=== PATIENT | female | born 1950 | race Caucasian/White ===

== ENCOUNTER 2020-05-01 11:27 | Outpatient (REF) | payer MEDICARE, SELFPAY ==
[2020-05-01 14:03] LABS: Hemoglobin 13.6 g/dl (12.0-16.0); Imm Gran Abs Auto 0.02 X10*3/uL (0.00-0.03); Imm Gran Pct Auto 0.2 % (0.0-0.4); MANUAL DIFF FLAG SCAN; Mean Platelet Volume 11.5 fL (9.4-12.3); PLT CLUMP 1; SCAN SMEAR FLAG 1
[2020-05-01 14:05] LABS: Basophils Absolute Auto 0.1 X10*3/uL (0.0-0.2); Basophils Percent Auto 0.7 % (0-2); Eosinophils Absolute Auto 0.1 X10*3/uL (0.0-0.4); Eosinophils Percent Auto 1.4 % (0-4); Hematocrit 42.1 % (37-47); Lymphocytes Absolute Auto 2.4 X10*3/uL (1.2-4.9); Lymphocytes Percent Auto 26.2 % (20-40); Mean Corpuscular HGB Conc 32.3 g/dl (31.0-35.0); Mean Corpuscular Hemoglobin 30.7 pg (27.0-33.0); Monocytes Absolute Auto 0.8 X10*3/uL (0.1-1.2); Monocytes Percent Auto 9.3 % (2-11); Neutrophils Absolute Auto 5.6 X10*3/uL (2.0-8.3); Neutrophils Percent Auto 62.2 % (45-73); Platelet Count 182 X10*3/uL (160-400); Red Blood Count 4.43 X10*6/uL (4.20-5.50)
[2020-05-01 14:33] LABS: Alanine Aminotransferase 24 U/L (0-31); Albumin Level 4.6 g/dL (3.5-5.0); Alkaline Phosphatase 95 U/L (39-117); Anion Gap 15 (12-20); Aspartate Amino Transferase 25 U/L (5-31); Bilirubin Direct 0.3 mg/dL (0.0-0.5); Bilirubin Total 0.9 mg/dL (0.0-1.0); Blood Urea Nitrogen 13 mg/dL (9-16); Calcium 10.2 mg/dL (8.4-10.2); Carbon Dioxide 28 mmol/L (22-29); Chloride 101 mmol/L (96-108); Cholesterol 211 mg/dL; Estimated Glomerular Filt Rate > 60; Glucose Fasting 147 mg/dL (60-99); HDL Cholesterol 98 mg/dL; LDL Cholesterol Calculated 93 mg/dl; Potassium 4.4 mmol/L (3.3-5.1); Sodium 140 mmol/L (135-145); Total Protein 7.5 g/dL (6.5-8.0); Triglycerides 103 mg/dL
[2020-05-01 14:36] LABS: SLIDE REVIEW VERIFIED
[2020-05-04 21:18] LABS: Vitamin D 25-OH, D2 <4 ng/mL; Vitamin D 25-OH, D3 50 ng/mL; Vitamin D 25-OH, Total 50 ng/mL (30-100)
== END 2020-05-01 11:28 | disposition home or self-care (01) ==
LOC: HO.HMGCLDS 11:27
PROVIDERS: PCP Internal Medicine; Visit Provider Internal Medicine
DX: J30.9 Allergic rhinitis, unspecified (principal); E78.9 Disorder of lipoprotein metabolism, unspecified; G47.9 Sleep disorder, unspecified; J44.9 Chronic obstructive pulmonary disease, unspecified; Z76.89 Persons encountering health services in other specified circumstances; Z86.73 Personal history of transient ischemic attack (TIA), and cerebral infarction without residual deficits
CPT/HCPCS: 36415; 80048; 80061; 80076; 82306; 84443; 85025

== ENCOUNTER 2020-05-08 08:49 | Outpatient (REF) | payer MEDICARE, SELFPAY ==
[2020-05-08 11:42] LABS: Estimated Average Glucose 120 mg/dL; Hemoglobin A1c % 5.8 %
== END 2020-05-08 08:50 | disposition home or self-care (01) ==
LOC: HO.HMGCLDS 08:49
PROVIDERS: PCP Internal Medicine; Visit Provider Internal Medicine
DX: R73.01 Impaired fasting glucose (principal)
CPT/HCPCS: 36415; 83036

== ENCOUNTER → 2020-08-06 08:43 | Outpatient (BNVA) | payer MEDICARE, SELFPAY | PROVIDERS: PCP Internal Medicine; Visit Provider Internal Medicine | DX: J30.9 Allergic rhinitis, unspecified (principal); J44.9 Chronic obstructive pulmonary disease, unspecified | CPT/HCPCS: 99202 ==

== ENCOUNTER 2020-09-03 09:58 | Outpatient (REF) | payer MEDICARE, SELFPAY ==
--- NOTE | 2020-09-03 17:10 | PFT_ITS ---
FLOWS: FEV1 25% of predicted at 0.48 L. FVC 49% of predicted at 1.26 L. FEV1 to FVC ratio of 0.38. Bronchodilator was not performed as patient has used bronchodilator immediately prior to testing. LUNG VOLUMES: Total lung capacity 73% of predicted at 3.26 L. Residual volume 102% of predicted at 2.06 L. Slow vital capacity 49% of predicted at 1.23 L. Expiratory reserve volume 74% of predicted at 0.40 L. Diffusion capacity is severely decreased, diffusion capacity adjust to being moderately decreased after correction for alveolar ventilation. IMPRESSION: Severe obstructive ventilatory defect. No bronchodilator testing was performed as patient has used bronchodilator prior to testing. Decreased diffusion capacity suggests emphysema. MD GERRI Reis/MODL / [phone]
== END 2020-09-03 09:59 | disposition home or self-care (01) ==
LOC: HO.RESP 09:58
PROVIDERS: PCP Internal Medicine; Visit Provider Internal Medicine
DX: J44.9 Chronic obstructive pulmonary disease, unspecified (principal); J30.9 Allergic rhinitis, unspecified
CPT/HCPCS: 94010; 94727; 94729; 99211

== ENCOUNTER → 2020-09-13 10:35 | Outpatient (BNVA) | payer MEDICARE, SELFPAY | PROVIDERS: PCP Internal Medicine; Visit Provider Internal Medicine | DX: J44.9 Chronic obstructive pulmonary disease, unspecified (principal); J96.91 Respiratory failure, unspecified with hypoxia; J30.9 Allergic rhinitis, unspecified | CPT/HCPCS: 99212 ==

== ENCOUNTER 2020-09-25 10:18 | Outpatient (REF) | payer MEDICARE, SELFPAY ==
[2020-09-25 12:40] LABS: Alanine Aminotransferase 51 U/L (0-31); Albumin Level 4.5 g/dL (3.5-5.0); Alkaline Phosphatase 94 U/L (39-117); Anion Gap 16 (12-20); Aspartate Amino Transferase 54 U/L (5-31); Bilirubin Total 0.9 mg/dL (0.0-1.0); Blood Urea Nitrogen 10 mg/dL (9-16); Calcium 9.9 mg/dL (8.4-10.2); Carbon Dioxide 24 mmol/L (22-29); Chloride 104 mmol/L (96-108); Cholesterol 201 mg/dL; Estimated Glomerular Filt Rate > 60; Glucose Fasting 120 mg/dL (60-99); HDL Cholesterol 99 mg/dL; LDL Cholesterol Calculated 83 mg/dl; Potassium 4.4 mmol/L (3.3-5.1); Sodium 140 mmol/L (135-145); Total Protein 7.3 g/dL (6.5-8.0); Triglycerides 96 mg/dL
== END 2020-09-25 10:19 | disposition home or self-care (01) ==
LOC: HO.HMGCLDS 10:18
PROVIDERS: PCP Internal Medicine; Visit Provider Internal Medicine
DX: R73.01 Impaired fasting glucose (principal); E78.9 Disorder of lipoprotein metabolism, unspecified; G47.9 Sleep disorder, unspecified; J44.9 Chronic obstructive pulmonary disease, unspecified
CPT/HCPCS: 36415; 80053; 80061

== ENCOUNTER 2020-11-07 09:59 | Outpatient (REF) | payer MEDICARE, SELFPAY ==
--- NOTE | ~2020-11-07 | MM_ITS ---
EXAMINATION: MM SCREENING DIGITAL MAMMOGRAPHY, BILATERAL CLINICAL INFORMATION: Screening. Asymptomatic. The lifetime risk of breast cancer based on the Tyrer-Cuzick Model is 3%. COMPARISON: Mammography: 04/15/2017, 11/23/2015, 05/29/2014 TECHNIQUE: Digital mammography is performed in craniocaudal and mediolateral oblique views along with computer-aided detection (CAD). FINDINGS: There are scattered areas of fibroglandular density (ACR BI-RADS breast composition Category b). The breasts are mild symmetrically smaller and mildly slightly increased in density from prior exams consistent with weight loss. Parenchymal pattern is otherwise unremarkable and similar in distribution to prior exams. There is no interval mass or architectural abnormality or developing density. No abnormal calcifications. The axilla and skin contours are unremarkable. MM/MM screening mammo BI IMPRESSION: 1. Mild symmetric breast size decrease consistent with weight loss. 2. Otherwise no significant changes from prior studies. ASSESSMENT: BI-RADS 2: Benign RECOMMENDATION: Routine annual mammography screening. This patient's information was entered into a reminder system with a target due date for their next mammogram.
--- NOTE | ~2020-11-07 | MM_ITS ---
EXAMINATION: BONE DENSITOMETRY CLINICAL INDICATION: Encounter for other screening for malignant neoplasm. COMPARISON: Previous BD dated 11/23/2015 and baseline BD dated 06/18/2012. TECHNIQUE: Using a [employer] DXA System (software version: 13.1) manufactured by [employer], dual-energy x-ray absorptiometry was performed of the lumbar spine and left hip. The images are of good technical quality. Summary results are attached. FINDINGS: AP SPINE L1-L4: Current: BMD 0.927 g/cm2, Z-score 0.4, T-score -2.1, osteopenia, 2.4% increase from previous, 15.6% increase from baseline (<5% change is not significant). Prior: BMD 0.905 g/cm2. Baseline: BMD 0.802 g/cm2. LEFT FEMUR, NECK: Current: BMD 0.540 g/cm2, Z-score -1.4, T-score -3.6, osteoporosis. Prior: BMD 0.551 g/cm2. Baseline: BMD 0.524 g/cm2. LEFT FEMUR, TOTAL: Current: BMD 0.561 g/cm2, Z-score -1.5, T-score -3.5, osteoporosis, 1.1% decrease from previous, 4.3% increase from baseline (<5% change is not significant). Prior: BMD 0.567 g/cm2. Baseline: BMD 0.538 g/cm2. IDENTIFIED RISK FACTORS: Low body weight, menopause. HISTORY OF FRACTURE: None listed. MEDICATIONS: Calcium supplements or multivitamin, vitamin D. MM/XR DEXA axial skeleton IMPRESSION: 1. DIAGNOSIS: Osteoporosis based on the lowest T-score value of -3.6 in the femoral neck applying World Health Organization criteria. 2. 10-YEAR FRACTURE RISK PREDICTION, FRAX: Major osteoporotic fracture (clinical spine, forearm, hip or shoulder) 21.0%. Hip fracture 9.7%. 3. Treatment Recommendations: NOF guidelines recommend consideration for treatment in postmenopausal women and men age 50 and older presenting with the following: -A hip or vertebral (clinical or morphometric) fracture. -T-score less than or equal to -2.5 at the femoral neck or spine after appropriate evaluation to exclude secondary causes. -Low bone mass at the hip or spine and a 10-year fracture probability by FRAX of greater than or equal to 3% for hip fracture or greater than or equal to 20% for major osteoporotic fracture based on the [place] adapted WHO algorithm. 4. Other Recommendations: All treatment decisions require clinical judgment and consideration of individual patient factors, including patient preferences, comorbidities, previous drug use, risk factors not captured in the FRAX model (e.g. frailty, falls, vitamin D deficiency, increased bone turnover, interval significant decline in bone density) and possible under or overestimation of fracture risk by FRAX. Additional medical evaluation for secondary cause of low bone mineral density may be appropriate. FUTURE SCAN RECOMMENDATION: People with diagnosed cases of osteoporosis or at high risk for fracture should have regular bone mineral density tests. For patients eligible for Medicare, routine testing is allowed once every 2 years. The testing frequency can be increased to one year for patients who have rapidly progressing disease, those who are receiving or discontinuing medical therapy to restore bone mass, or have additional risk factors.
== END 2020-11-07 10:00 | disposition home or self-care (01) ==
LOC: HO.MAMMO 09:59
PROVIDERS: Visit Provider Internal Medicine
DX: Z12.31 Encounter for screening mammogram for malignant neoplasm of breast (principal); Z13.820 Encounter for screening for osteoporosis; Z78.0 Asymptomatic menopausal state
CPT/HCPCS: 77067; 77080

== ENCOUNTER → 2020-11-26 09:44 | Outpatient (BNVA) | payer MEDICARE, SELFPAY | PROVIDERS: PCP Internal Medicine; Visit Provider Internal Medicine | DX: J44.9 Chronic obstructive pulmonary disease, unspecified (principal); J96.91 Respiratory failure, unspecified with hypoxia; J30.9 Allergic rhinitis, unspecified; I10 Essential (primary) hypertension | CPT/HCPCS: 99212 ==

== ENCOUNTER 2020-11-27 12:14 | Outpatient (REF) | payer MEDICARE, SELFPAY ==
[2020-11-27 14:13] LABS: Estimated Average Glucose 117 mg/dL; Hemoglobin A1c % 5.7 %
[2020-11-27 14:22] LABS: Alanine Aminotransferase 21 U/L (0-31); Albumin Level 4.5 g/dL (3.5-5.0); Alkaline Phosphatase 83 U/L (39-117); Anion Gap 16 (12-20); Aspartate Amino Transferase 23 U/L (5-31); Bilirubin Total 0.9 mg/dL (0.0-1.0); Blood Urea Nitrogen 11 mg/dL (9-16); Calcium 9.9 mg/dL (8.4-10.2); Carbon Dioxide 23 mmol/L (22-29); Chloride 106 mmol/L (96-108); Estimated Glomerular Filt Rate > 60; Glucose Random 119 mg/dL (60-115); Potassium 4.2 mmol/L (3.3-5.1); Sodium 141 mmol/L (135-145); Total Protein 6.9 g/dL (6.5-8.0)
== END 2020-11-27 12:15 | disposition home or self-care (01) ==
LOC: HO.HMGCLDS 12:14
PROVIDERS: PCP Internal Medicine; Visit Provider Internal Medicine
DX: F41.1 Generalized anxiety disorder (principal); G47.9 Sleep disorder, unspecified; R79.89 Other specified abnormal findings of blood chemistry; R73.01 Impaired fasting glucose
CPT/HCPCS: 36415; 80053; 83036

== ENCOUNTER → 2021-05-02 10:47 | Outpatient (BNVA) | payer MEDICARE, SELFPAY | PROVIDERS: PCP Internal Medicine; Visit Provider Internal Medicine | DX: J44.9 Chronic obstructive pulmonary disease, unspecified (principal); J96.91 Respiratory failure, unspecified with hypoxia; Z79.899 Other long term (current) drug therapy; Z99.81 Dependence on supplemental oxygen | CPT/HCPCS: 99212 ==

== ENCOUNTER 2021-08-20 11:48 | Outpatient (REF) | payer MEDICARE, SELFPAY ==
[2021-08-20 13:48] LABS: MANUAL DIFF FLAG NO
[2021-08-20 13:51] LABS: Basophils Absolute Auto 0.1 X10*3/uL (0.0-0.2); Basophils Percent Auto 0.6 % (0-2); Eosinophils Absolute Auto 0.1 X10*3/uL (0.0-0.4); Eosinophils Percent Auto 0.8 % (0-4); Hematocrit 43.8 % (37.0-47.0); Hemoglobin 13.8 g/dl (12.0-16.0); Imm Gran Abs Auto 0.06 X10*3/uL (0.00-0.03); Imm Gran Pct Auto 0.7 % (0.0-0.4); Lymphocytes Absolute Auto 1.7 X10*3/uL (1.2-4.9); Lymphocytes Percent Auto 18.9 % (20-40); Mean Corpuscular HGB Conc 31.5 g/dl (31.0-35.0); Mean Corpuscular Hemoglobin 30.3 pg (27.0-33.0); Mean Corpuscular Volume 96.3 fL (80.0-98.0); Mean Platelet Volume 10.9 fL (9.4-12.3); Monocytes Absolute Auto 0.9 X10*3/uL (0.1-1.2); Monocytes Percent Auto 9.7 % (2-11); Neutrophils Absolute Auto 6.2 x10*3/uL (2.0-8.3); Neutrophils Percent Auto 69.3 % (45-73); Platelet Count 272 X10*3/uL (160-400); Red Blood Count 4.55 X10*6/uL (4.20-5.50); Red Cell Distribution Width 13.2 % (11.0-16.0)
[2021-08-20 14:02] LABS: Alanine Aminotransferase 32 U/L (0-31); Albumin Level 4.7 g/dL (3.5-5.0); Alkaline Phosphatase 85 U/L (39-117); Anion Gap 17 (12-20); Aspartate Amino Transferase 30 U/L (5-31); Bilirubin Total 0.7 mg/dL (0.0-1.0); Blood Urea Nitrogen 12 mg/dL (9-16); Calcium 10.6 mg/dL (8.4-10.2); Carbon Dioxide 28 mmol/L (22-29); Chloride 100 mmol/L (96-108); Estimated Glomerular Filt Rate > 60; Glucose Random 102 mg/dL (60-115); Potassium 4.9 mmol/L (3.3-5.1); Sodium 140 mmol/L (135-145); Total Protein 7.7 g/dL (6.5-8.0)
[2021-08-20 14:23] LABS: TSH reflex Free T4 1.33 uIU/mL (0.32-4.0)
== END 2021-08-20 11:49 | disposition home or self-care (01) ==
LOC: HO.HMGCLDS 11:48
PROVIDERS: PCP Internal Medicine; Visit Provider Internal Medicine
DX: E78.9 Disorder of lipoprotein metabolism, unspecified (principal); F41.1 Generalized anxiety disorder; J44.9 Chronic obstructive pulmonary disease, unspecified; R00.0 Tachycardia, unspecified; R03.0 Elevated blood-pressure reading, without diagnosis of hypertension; R79.89 Other specified abnormal findings of blood chemistry
CPT/HCPCS: 36415; 80053; 84443; 85025

== ENCOUNTER → 2021-08-27 10:40 | Outpatient (BNVA) | payer MEDICARE, SELFPAY | PROVIDERS: PCP Internal Medicine; Visit Provider Internal Medicine | DX: J44.9 Chronic obstructive pulmonary disease, unspecified (principal); J96.91 Respiratory failure, unspecified with hypoxia; Z99.81 Dependence on supplemental oxygen | CPT/HCPCS: 99212 ==

== ENCOUNTER → 2022-04-03 10:09 | Outpatient (BNVA) | payer MEDICARE, SELFPAY | PROVIDERS: PCP Internal Medicine; Visit Provider Internal Medicine | DX: J44.9 Chronic obstructive pulmonary disease, unspecified (principal); J96.91 Respiratory failure, unspecified with hypoxia | CPT/HCPCS: 99212 ==

== ENCOUNTER 2022-05-06 13:11 | Outpatient (REF) | payer MEDICARE, SELFPAY ==
[2022-05-06 14:22] LABS: MANUAL DIFF FLAG NO
[2022-05-06 14:26] LABS: Basophils Absolute Auto 0.1 X10*3/uL (0.0-0.2); Basophils Percent Auto 0.9 % (0-2); Eosinophils Absolute Auto 0.1 X10*3/uL (0.0-0.4); Eosinophils Percent Auto 0.7 % (0-4); Hematocrit 42.7 % (37.0-47.0); Hemoglobin 13.6 g/dl (12.0-16.0); Imm Gran Abs Auto 0.03 X10*3/uL (0.00-0.03); Imm Gran Pct Auto 0.3 % (0.0-0.4); Lymphocytes Percent Auto 22.5 % (20-40); Mean Corpuscular HGB Conc 31.9 g/dl (31.0-35.0); Mean Corpuscular Hemoglobin 30.6 pg (27.0-33.0); Mean Platelet Volume 10.4 fL (9.4-12.3); Monocytes Absolute Auto 0.7 X10*3/uL (0.1-1.2); Monocytes Percent Auto 8.1 % (2-11); Neutrophils Absolute Auto 6.1 x10*3/uL (2.0-8.3); Neutrophils Percent Auto 67.5 % (45-73); Platelet Count 373 X10*3/uL (160-400); Red Blood Count 4.45 X10*6/uL (4.20-5.50); Red Cell Distribution Width 13.3 % (11.0-16.0); White Blood Count 9.1 X10*3/uL (4.8-10.8)
[2022-05-06 15:06] LABS: Alanine Aminotransferase 17 U/L (0-31); Albumin Level 4.5 g/dL (3.5-5.0); Alkaline Phosphatase 119 U/L (39-117); Anion Gap 18 (12-20); Aspartate Amino Transferase 21 U/L (5-31); Bilirubin Total 0.8 mg/dL (0.0-1.0); Blood Urea Nitrogen 11 mg/dL (9-16); Calcium 10.2 mg/dL (8.4-10.2); Carbon Dioxide 23 mmol/L (22-29); Chloride 103 mmol/L (96-108); Estimated Glomerular Filt Rate > 60; Glucose Random 190 mg/dL (60-115); Potassium 4.6 mmol/L (3.3-5.1); Sodium 139 mmol/L (135-145); Total Protein 7.3 g/dL (6.5-8.0)
== END 2022-05-06 13:12 | disposition home or self-care (01) ==
LOC: HO.HMGCLDS 13:11
PROVIDERS: PCP Internal Medicine; Visit Provider Internal Medicine
DX: J44.9 Chronic obstructive pulmonary disease, unspecified (principal); E78.9 Disorder of lipoprotein metabolism, unspecified; G47.9 Sleep disorder, unspecified
CPT/HCPCS: 36415; 80053; 85025

== ENCOUNTER 2022-10-03 11:30 | Outpatient (AMB) | payer MEDICARE, SELFPAY ==
--- NOTE | 2022-10-03 11:30 | A.OFFPC_ITS ---
Vital Signs 10/03/22 11:31 Height 5 ft BMI Reason not done Patient refused/unable BP 132/68 Blood Pressure Location Lt brachial Position Sitting Pulse 107 H Pulse Source Pulse Oximeter Pulse Oximetry (%) 98 Oxygen Delivery Method Nasal Cannula Intake Visit Reasons: PE Allergies Sulfamethoxazole-TMP DS Allergy (Intermediate, Uncoded 04/03/22 10:37) tongue swelling Medication List - Last Reconciled 10/03/22 by Wilton Alfaro MD albuterol sulfate 90 mcg/actuation (ProAir HFA) 2 puffs inhalation Q4-6H PRN 30 days amlodipine 2.5 mg PO DAILY 90 days Anoro Ellipta 62.5-25 mcg/actuation (umeclidinium-vilanterol) 1 ea PO DAILY NS ascorbate calcium (vitamin C) 500 mg PO DAILY aspirin (Adult Low Dose Aspirin) 81 mg PO DAILY cholecalciferol (vitamin D3) 25 mcg PO DAILY escitalopram oxalate (Lexapro) 10 mg PO DAILY 90 days fluticasone propionate 50 mcg/actuation (Flonase Allergy Relief) 1 spray intranasal DAILY PRN 30 days mirtazapine 22.5 mg (1.5 x 15 mg) PO BEDTIME simvastatin 20 mg PO DAILY 90 days vitamin B complex (B Complex-Vitamin B12 tablet) 1 tab PO DAILY vitamin E 200 units PO BID Tobacco use date assessed: 10/03/22 Fall risk assessment: 1 Fall in past year Last assessed Fall Risk: 10/03/22 Dental Screening Dental Screen Date: 10/03/22 Did you have a dental visit in the last 12 months?: Yes Did you have a dental problem in the last 6 months where you did not have access to dental care?: No Was dental information given to patient?: No HPI PE HPI Details Physical exam appointment patient is a 72-year-old female Patient fell yesterday tripped over a wire right knee is hurting I have ordered x-ray for her I have told her to take deep that she already have at home b.i.d. in get back to me in 1 week. She is able to put weight on it when she is holding on. Due for mammogram and bone density patient have osteoporosis She has taking Fosamax for years and stopped. We discussed that briefly today I think it will be reasonable up she took a neurologist she says she will get back to me on that. Blood pressure is stable patient is on amlodipine 2.5 mg She also did Lexapro for anxiety mirtazapine 22.5 to sleep at night Continue simvastatin 20 mg daily COPD management through Dr. Valderrama patient is oxygen dependent Due for labs today as well Follow-up 3 months [facility] Medical History COPD (chronic obstructive pulmonary disease) Respiratory failure with hypoxia Stroke Social History Housing: House Alcohol intake: current Alcohol intake frequency: holidays/special occasions only Patient Tobacco Use Status: Former Tobacco user Quit Date: 2012 Tobacco use type: Cigarette e-Cigarette/Vaping Use: Never Used service: No Current occupational status: retired Cognitive needs: No Hearing needs: No Vision needs: Yes Questionnaire Thrive Questionnaire Date Thrive assessed: 09/26/20 AUDIT C Alcohol Use Questionnaire (AUDIT-C) 1. How often do you have a drink containing alcohol?: Never 3. How often do you have six or more drinks on one occasion?: Never Total Score: 0 Score Reviewed/Action Taken: Yes Review of Systems Const Denies chills, Denies fever(s) and Denies headache(s) Eyes Denies blurry vision ENT Denies headache(s), Denies nasal discharge, Denies nasal obstruction, Denies odynophagia and Denies sinus pain Card Denies chest pain at rest and Denies chest pain with activity Resp Denies hemoptysis GI Denies diarrhea, Denies odynophagia, Denies vomiting and Denies hematemesis Reports as per HPI Skin/Breast Reports as per HPI Neuro Denies Neuro-related abnormal movements, Denies Abnormal speech present, Denies headache(s) and Denies Sensory deficit (Neuro) Psych Denies mood swings and Denies paranoia Endo Reports as per HPI Renan/Lymph Reports as per HPI Aller/Immun Reports as per HPI Physical exam (Primary Care) Vital Signs: Last Vital Signs Pulse 107 H 10/03/22 11:31 BP 132/68 10/03/22 11:31 Pulse Ox 98 10/03/22 11:31 Oxygen Delivery Method Nasal Cannula 10/03/22 11:31 Tobacco/Smoking Status: Tobacco use Status Tobacco use date assessed 10/03/22 10/03/22 11:33 Patient Tobacco Use Status Former Tobacco user 10/03/22 11:33 Tobacco use type Cigarette 10/03/22 11:33 e-Cigarette/Vaping Use Never Used 10/03/22 11:33 Thrive Assessment: Date of Thrive Assessment Date Thrive assessed 09/26/20 10/03/22 11:33 Const Other: Patient is sitting in wheelchair comfortably General: cooperative, comfortable and no acute distress Orientation/consciousness: patient oriented x3 HENMT Other: Nasal cannula in nose Head: Yes normocephalic and Yes atraumatic Eyes General: appearance normal, both eyes and all related structures Pupils: Equal, round and reactive pupils present EOM: EOMs intact bilaterally Neck Neck: Yes supple and No lymphadenopathy Thyroid: Thyroid normal Lymphatic: no lymphadenopathy noted Resp Effort & Inspection: able to speak in complete sentences Auscultation: clear to auscultation bilaterally Cardio Heart sounds: S1 normal heart sound present and S2 normal heart sound present GI Palpation (GI): Soft to palpation and nontender Auscultation: normal bowel sounds General: Yes no CVA tenderness Back/Spine/Pelvis Back: no CVA tenderness Skin General skin exam: elasticity normal and turgor normal Neuro General: patient oriented x3 Cranial nerves: Yes Equal, round and reactive pupils present Speech: No Abnormal speech present Sensory Exam: No Sensory deficit (Neuro) Extrem General: Yes normal exam except as noted and No edema Assessment and Plan Assessment & Plan (1) Encounter for general adult medical examination with abnormal findings: Code(s): Z00.01 - Encounter for general adult medical examination with abnormal findings (2) Right knee injury: Code(s): S89.91XA - Unspecified injury of right lower leg, initial encounter (3) Lipid disorder: Code(s): E78.9 - Disorder of lipoprotein metabolism, unspecified (4) Elevated fasting blood sugar: Code(s): R73.01 - Impaired fasting glucose (5) LFT elevation: Code(s): R79.89 - Other specified abnormal findings of blood chemistry (6) COPD, severe: Code(s): J44.9 - Chronic obstructive pulmonary disease, unspecified (7) Osteoporosis: Code(s): M81.0 - Age-related osteoporosis without current pathological fracture (8) Anxiety, generalized: Code(s): F41.1 - Generalized anxiety disorder Plan Physical exam appointment patient is a 72-year-old female Patient fell yesterday tripped over a wire right knee is hurting I have ordered x-ray for her I have told her to take deep that she already have at home b.i.d. in get back to me in 1 week. She is able to put weight on it when she is holding on. Due for mammogram and bone density patient have osteoporosis She has taking Fosamax for years and stopped. We discussed that briefly today I think it will be reasonable up she took a neurologist she says she will get back to me on that. Blood pressure is stable patient is on amlodipine 2.5 mg She also did Lexapro for anxiety mirtazapine 22.5 to sleep at night Continue simvastatin 20 mg daily COPD management through Dr. Valderrama patient is oxygen dependent Due for labs today as well Follow-up 3 months Orders: Orders Comprehensive Met. Panel Today E78.9 - Disorder of lipoprotein metabolism, unspecified, F41.1 - Generalized anxiety disorder, J44.9 - Chronic obstructive pulmonary disease, unspecified, M81.0 - Age-related osteoporosis without current pathological fracture, R73.01 - Impaired fasting glucose, R79.89 - Other specified abnormal findings of blood chemistry, Z00.01 - Encounter for general adult medical examination with abnormal findings LDL Cholesterol Direct Today E78.9 - Disorder of lipoprotein metabolism, unspecified, F41.1 - Generalized anxiety disorder, J44.9 - Chronic obstructive pulmonary disease, unspecified, M81.0 - Age-related osteoporosis without current pathological fracture, R73.01 - Impaired fasting glucose, R79.89 - Other specified abnormal findings of blood chemistry, Z00.01 - Encounter for general adult medical examination with abnormal findings Complete Blood Count Auto Diff Today E78.9 - Disorder of lipoprotein metabolism, unspecified, F41.1 - Generalized anxiety disorder, J44.9 - Chronic obstructive pulmonary disease, unspecified, M81.0 - Age-related osteoporosis without current pathological fracture, R73.01 - Impaired fasting glucose, R79.89 - Other specified abnormal findings of blood chemistry, Z00.01 - Encounter for general adult medical examination with abnormal findings XR knee RT 2V Today S89.91XA - Unspecified injury of right lower leg, initial encounter MM tomosynthesis screening BI Today Z12.31 - Encounter for screening mammogram for malignant neoplasm of breast Medications: New cholecalciferol (vitamin D3) 25 mcg PO DAILY 90 caps 0RF Changed From mirtazapine 22.5 mg (1.5 x 15 mg) PO BEDTIME 135 tabs 0RF To mirtazapine 22.5 mg (1.5 x 15 mg) PO BEDTIME 90 days 135 tabs 1RF Refilled simvastatin 20 mg PO DAILY 90 days 90 tabs 0RF E78.9 - Disorder of lipoprotein metabolism, unspecified fluticasone propionate 50 mcg/actuation (Flonase Allergy Relief) administer into each nostril 1 spray intranasal DAILY 30 days PRN 16 grams 3RF nasal congestion escitalopram oxalate (Lexapro) 10 mg PO DAILY 90 days 90 tabs 0RF F41.1 - Generalized anxiety disorder amlodipine 2.5 mg PO DAILY 90 days 90 tabs 0RF Coding Level of Care Code Est Pt Prev Care >65y(55502) Diagnoses Encounter for general adult medical examination with abnormal findings Z00.01 Right knee injury S89.91XA Lipid disorder E78.9 Elevated fasting blood sugar R73.01 LFT elevation R79.89 COPD, severe J44.9 Osteoporosis M81.0 Anxiety, generalized F41.1
[2022-10-03 11:31] VITALS: BP 132/68; PULSE 107; O2SAT 98
== END 2022-10-03 11:59 | disposition home or self-care (01) ==
PROVIDERS: Visit Provider Internal Medicine
DX: Z00.01 Encounter for general adult medical examination with abnormal findings (principal); S89.91XA Unspecified injury of right lower leg, initial encounter; E78.9 Disorder of lipoprotein metabolism, unspecified; J44.9 Chronic obstructive pulmonary disease, unspecified; R73.01 Impaired fasting glucose; R79.89 Other specified abnormal findings of blood chemistry; M81.0 Age-related osteoporosis without current pathological fracture; F41.1 Generalized anxiety disorder
CPT/HCPCS: 99397

== ENCOUNTER 2022-10-03 12:02 | Outpatient (REF) | payer MEDICARE, SELFPAY ==
--- NOTE | ~2022-10-03 | XR_ITS ---
EXAMINATION: XR KNEE, RIGHT CLINICAL INFORMATION: Injury of the right lower leg COMPARISON: None available. TECHNIQUE: Four views of the right knee. FINDINGS: No fracture or subluxation. Compartmental joint spaces are maintained. Enthesophyte formation of the patella. Small joint effusion. XR/XR knee RT 4V IMPRESSION: Small joint effusion. No fracture or malalignment.
[2022-10-03 14:22] LABS: MANUAL DIFF FLAG NO
[2022-10-03 14:50] LABS: Basophils Percent Auto 0.3 % (0-2); Hematocrit 41.8 % (37.0-47.0); Hemoglobin 13.7 g/dl (12.0-16.0); Imm Gran Abs Auto 0.04 X10*3/uL (0.00-0.03); Imm Gran Pct Auto 0.4 % (0.0-0.4); Lymphocytes Absolute Auto 0.7 X10*3/uL (1.2-4.9); Lymphocytes Percent Auto 6.9 % (20-40); Mean Corpuscular HGB Conc 32.8 g/dl (31.0-35.0); Mean Corpuscular Hemoglobin 31.2 pg (27.0-33.0); Mean Corpuscular Volume 95.2 fL (80.0-98.0); Mean Platelet Volume 10.8 fL (9.4-12.3); Monocytes Absolute Auto 0.5 X10*3/uL (0.1-1.2); Monocytes Percent Auto 5.1 % (2-11); Neutrophils Absolute Auto 8.7 x10*3/uL (2.0-8.3); Neutrophils Percent Auto 87.3 % (45-73); Platelet Count 240 X10*3/uL (160-400); Red Blood Count 4.39 X10*6/uL (4.20-5.50); Red Cell Distribution Width 13.1 % (11.0-16.0); White Blood Count 9.9 X10*3/uL (4.8-10.8)
[2022-10-03 15:16] LABS: Alanine Aminotransferase 26 U/L (0-31); Albumin Level 4.6 g/dL (3.5-5.0); Alkaline Phosphatase 86 U/L (39-117); Anion Gap 16 (12-20); Aspartate Amino Transferase 25 U/L (5-31); Bilirubin Total 0.9 mg/dL (0.0-1.0); Blood Urea Nitrogen 14 mg/dL (9-16); Carbon Dioxide 26 mmol/L (22-29); Chloride 99 mmol/L (96-108); Estimated Glomerular Filt Rate 50; Glucose Random 128 mg/dL (60-115); Potassium 4.3 mmol/L (3.3-5.1); Sodium 137 mmol/L (135-145); Total Protein 7.7 g/dL (6.5-8.0)
[2022-10-05 10:58] LABS: LDL Cholesterol Direct 70 mg/dL (<100)
== END 2022-10-03 12:03 | disposition home or self-care (01) ==
LOC: HO.HMGCX 12:02
PROVIDERS: PCP Internal Medicine; Visit Provider Internal Medicine
DX: Z00.01 Encounter for general adult medical examination with abnormal findings (principal); E78.9 Disorder of lipoprotein metabolism, unspecified; R73.01 Impaired fasting glucose; R79.89 Other specified abnormal findings of blood chemistry; J44.9 Chronic obstructive pulmonary disease, unspecified; M81.0 Age-related osteoporosis without current pathological fracture; F41.1 Generalized anxiety disorder; S89.91XA Unspecified injury of right lower leg, initial encounter
CPT/HCPCS: 36415; 73564; 80053; 83721; 85025

== ENCOUNTER 2022-11-11 10:37 | Outpatient (REF) | payer MEDICARE, SELFPAY ==
--- NOTE | ~2022-11-11 | MM_ITS ---
EXAMINATION: BONE DENSITOMETRY CLINICAL INDICATION: Age-related osteoporosis without current pathological fracture. COMPARISON: Previous BD dated 11/07/2020 and baseline BD dated 06/18/2012. TECHNIQUE: Using a [employer] DXA System (software version: 13.1) manufactured by [employer], dual-energy x-ray absorptiometry was performed of the lumbar spine and left hip. The images are of good technical quality. Summary results are attached. FINDINGS: LEFT FEMUR, NECK: Current: BMD 0.594 g/cm2, Z-score -0.9, T-score -3.2, osteoporosis. Prior: BMD 0.540 g/cm2. Baseline: BMD 0.524 g/cm2. LEFT FEMUR, TOTAL: Current: BMD 0.577 g/cm2, Z-score -1.3, T-score -3.4, osteoporosis, 2.9% increase from previous, 7.2% increase from baseline (<5% change is not significant). Prior: BMD 0.561 g/cm2. Baseline: BMD 0.538 g/cm2. AP SPINE L1-L4: Current: BMD 0.900 g/cm2, Z-score 0.2, T-score -2.3, osteopenia, 2.9% decrease from previous, 12.2% increase from baseline (<5% change is not significant). Prior: BMD 0.927 g/cm2. Baseline: BMD 0.802 g/cm2. IDENTIFIED RISK FACTORS: Menopause, low body weight, osteoporosis. HISTORY OF FRACTURE: None listed. MEDICATIONS: Calcium supplements or multivitamin, vitamin D. MM/XR DEXA axial skeleton IMPRESSION: 1. DIAGNOSIS: Osteoporosis based on the lowest T-score value of -3.4 in the total femur applying World Health Organization criteria. 2. 10-YEAR FRACTURE RISK PREDICTION, FRAX: According to the guidelines, FRAX calculation should only be performed on patients in the osteopenia bone density category. Therefore, FRAX was not performed on this patient. 3. Treatment Recommendations: NOF guidelines recommend consideration for treatment in postmenopausal women and men age 50 and older presenting with the following: -A hip or vertebral (clinical or morphometric) fracture. -T-score less than or equal to -2.5 at the femoral neck or spine after appropriate evaluation to exclude secondary causes. -Low bone mass at the hip or spine and a 10-year fracture probability by FRAX of greater than or equal to 3% for hip fracture or greater than or equal to 20% for major osteoporotic fracture based on the [place] adapted WHO algorithm. 4. Other Recommendations: All treatment decisions require clinical judgment and consideration of individual patient factors, including patient preferences, comorbidities, previous drug use, risk factors not captured in the FRAX model (e.g. frailty, falls, vitamin D deficiency, increased bone turnover, interval significant decline in bone density) and possible under or overestimation of fracture risk by FRAX. Additional medical evaluation for secondary cause of low bone mineral density may be appropriate. FUTURE SCAN RECOMMENDATION: People with diagnosed cases of osteoporosis or at high risk for fracture should have regular bone mineral density tests. For patients eligible for Medicare, routine testing is allowed once every 2 years. The testing frequency can be increased to one year for patients who have rapidly progressing disease, those who are receiving or discontinuing medical therapy to restore bone mass, or have additional risk factors.
== END 2022-11-11 10:38 | disposition home or self-care (01) ==
LOC: HO.MAMMO 10:37
PROVIDERS: PCP Internal Medicine; Visit Provider Internal Medicine
DX: Z12.31 Encounter for screening mammogram for malignant neoplasm of breast (principal); Z13.820 Encounter for screening for osteoporosis; Z78.0 Asymptomatic menopausal state; M81.0 Age-related osteoporosis without current pathological fracture
CPT/HCPCS: 77063; 77067; 77080

== ENCOUNTER → 2022-11-11 11:00 | Outpatient (BNV) | payer MEDICARE, SELFPAY | PROVIDERS: PCP Internal Medicine; Visit Provider Radiology Diagnostic Radiology | DX: Z12.31 Encounter for screening mammogram for malignant neoplasm of breast (principal) | CPT/HCPCS: 77063; 77067; 77080 ==

== ENCOUNTER 2022-12-11 10:51 | Outpatient (AMB) | payer MEDICARE, SELFPAY ==
--- NOTE | 2022-12-11 11:21 | MHC.OFFVIS ---
Intake Vital Signs 12/11/22 11:23 Height 5 ft Weight 83 lb BMI 16.2 BP 120/62 Blood Pressure Location Lt brachial Position Sitting Pulse 106 H Pulse Source Pulse Oximeter Pulse Oximetry (%) 93 Oxygen Delivery Method Nasal Cannula Oxygen Flow Rate 2 Intake Visit Reasons: COPD Intake Note: pt is here for follow up and states she is using oxygen when she goes out and at night. But can move around the house without oxygen. Technical Assistance Consultant Required: No Allergies Sulfamethoxazole-TMP DS Allergy (Intermediate, Uncoded 12/11/22 11:32) tongue swelling Medication List - Last Reconciled 12/11/22 by Lyly Valderrama MD albuterol sulfate 90 mcg/actuation (ProAir HFA) 2 puffs inhalation Q4-6H PRN 30 days amlodipine 2.5 mg PO DAILY 90 days Anoro Ellipta 62.5-25 mcg/actuation (umeclidinium-vilanterol) 1 ea PO DAILY NS ascorbate calcium (vitamin C) 500 mg PO DAILY aspirin (Adult Low Dose Aspirin) 81 mg PO DAILY cholecalciferol (vitamin D3) 25 mcg PO DAILY escitalopram oxalate (Lexapro) 10 mg PO DAILY 90 days fluticasone propionate 50 mcg/actuation (Flonase Allergy Relief) 1 spray intranasal DAILY PRN 30 days mirtazapine 22.5 mg (1.5 x 15 mg) PO BEDTIME 90 days simvastatin 20 mg PO DAILY 90 days vitamin B complex (B Complex-Vitamin B12 tablet) 1 tab PO DAILY vitamin E 200 units PO BID Do you need a note to return to daycare/school/sports/work: No HPI COPD HPI Details THIS 72 YEARS OLD FEMALE OF A THIN BUILD, AND A CASE OF HIS SEVERE OBSTRUCTIVE AIRWAY DISORDER, COMES FOR FOLLOW-UP AFTER ALMOST 10 MONTHS. IN THE MEANTIME SHE HAS BEEN FAIRLY STABLE. SHE DOES HAVE STATIONARY CONCENTRATOR WELL A PORTABLE CYLINDER FOR USING OXYGEN SHE USES O2 2 L/MINUTE WHOLE NIGHT AND ONLY P.R.N. DURING THE DAYTIME. SHE COMES OUT WITH PORTABLE CYLINDER ONLY WHEN SHE GOES TO A DOCTOR'S APPOINTMENT. SHE SAY IS THAT IF SHE GOES TO STORE HER SOME OTHER PLACES FOR A SHORT TIME SHE DOES NOT TAKE THE PORTABLE. UNIT WITH ANYWAY SHE HAS BEEN VERY STABLE. LUCKILY SHE HAS HAD NO ACUTE INFECTION,. AND NO ACUTE EXACERBATION CONTINUES TO USE ANORO ELLIPTA 1 INHALATION DAILY. AND NEEDS TO USE ALBUTEROL ONLY ONCE IN A WHILE. [facility] Medical History (Updated 12/11/22 @ 11:45 by Lyly Valderrama MD) Respiratory failure with hypoxia Respiratory failure with hypoxia Stroke COPD (chronic obstructive pulmonary disease) Social History Housing: House Alcohol intake: current Alcohol intake frequency: holidays/special occasions only Patient Tobacco Use Status: Former Tobacco user Quit Date: 2012 Tobacco use type: Cigarette e-Cigarette/Vaping Use: Never Used service: No Current occupational status: retired Cognitive needs: No Hearing needs: No Vision needs: Yes Review of Systems Const All systems reviewed & are unremarkable except as noted in HPI and below Eyes Reports no additional complaints ENT Reports nasal congestion (MILD INTERMITTENT) Card Denies chest pain, Denies irregular heart rhythm and Denies leg edema Resp Reports as per HPI GI Reports no additional complaints and Reports other (APPETITE IS FAIR BUT SHE EATS IN SMALL AMOUNTS) Reports no additional complaints Musc Reports no additional complaints Skin/Breast Reports system reviewed and no additional complaints, except as documented Neuro Reports no additional complaints Psych Reports depression (CONTROLLED WITH MED) Physical Exam Vital Signs: Last Vital Signs Pulse 106 H 12/11/22 11:23 BP 120/62 12/11/22 11:23 Pulse Ox 93 12/11/22 11:23 Oxygen Delivery Method Nasal Cannula 12/11/22 11:23 Oxygen Flow Rate 2 12/11/22 11:23 BMI result Body Mass Index 16.2 Const General: comfortable, no acute distress, alert and awake Orientation/consciousness: patient oriented x3 HEENT Head: Yes normal to inspection General nose exam: No nasal polyps present and No nasal discharge present Face and sinus: Yes sinuses nontender Mouth: oropharynx normal Teeth and gingiva: poor dentition Throat: Yes posterior oropharynx normal Eyes General: appearance normal, both eyes and all related structures Neck Neck: Yes normal visual inspection, Yes no lymphadenopathy, Yes trachea midline and Yes no JVD Thyroid: Thyroid normal Chest Chest palpation & inspection: normal inspection of the chest, normal palpation of entire chest wall and no tenderness Resp Other: PERCUSSION NOTE IS RESONANT, BREATH SOUNDS ARE DISTANT WITH PROLONGED EXPIRATORY PHASE. NO WHEEZES OR RHONCHI OR CREPITATIONS ARE HEARD. Cardio Palpation: normal PMI Rate: regular rate Rhythm: regular rhythm Heart sounds: no gallops and no murmurs GI Palpation (GI): Soft to palpation, nontender, No hepatosplenomegaly present and no masses Auscultation: normal bowel sounds Back/Spine/Pelvis Thoracic/Lumbar Spine: thoracic and lumbar spine normal to inspection and thoraco-lumbar ROM limited Skin General skin exam: no rashes or lesions noted Neuro General: patient oriented x3 and no focal motor deficits Cranial nerves: Yes CN's II-XII intact bilaterally Extrem General: Yes normal to inspection, Yes no clubbing, cyanosis or edema and Yes no calf tenderness Psych Appearance: grossly normal and well kempt Speech and movement: Normal speech and movement present Assessment & Plan Assessment & Plan (1) COPD, severe: Comment: RELATIVELY SEVERE CHRONIC OBSTRUCTIVE PULMONARY DISEASE BUT IT IS STAYING QUITE STABLE AT THIS TIME. TX : NORO ELLIPTA 1 INHALATION DAILY. TO CONTINUE. AND PROAIR 2 PUFFS Q 4-6 HOURS ONLY P.R.N. Code(s): J44.9 - Chronic obstructive pulmonary disease, unspecified (2) Allergic rhinitis: Comment: MILD, MOSTLY DUE TO ALLERGY TO THE DOG, SHE TRIES TO STAY WAY FROM THE DOG MUCH POSSIBLE. TX FLONASE ALLERGY - 50 Mcgm. NASAL SPRAY 2 SPRAY EACH NOSTRIL DAILY Code(s): J30.9 - Allergic rhinitis, unspecified (3) Respiratory failure with hypoxia: Comment: PATIENT DOES HAVE CHRONIC HYPOXEMIA DUE TO HER ADVANCED COPD, SHE IS SUPPOSED TO USE O2 2 L/MINUTE, WITH STATIONARY CONCENTRATOR AND IS ADVISED TO USE AT NIGHT WELL . P.R.N. DURING THE DAYTIME SHE ALSO NEEDS O2 2 L/MINUTE WENT SHE IS DOING ANY PHYSICAL WORK OR GOING OUTDOORS. SHE DOES HAVE A PORTABLE CYLINDER . THERE WAS A DEFECT IN THE WELL, AND IT WAS FIXED IN THE OFFICE. Code(s): J96.91 - Respiratory failure, unspecified with hypoxia Coding Level of Care Code Est Pt Level 3 (75867) Diagnoses COPD, severe J44.9 Allergic rhinitis J30.9 Respiratory failure with hypoxia J96.91
[2022-12-11 11:23] VITALS: BP 120/62; PULSE 106; O2SAT 93; BMI 16.2
== END 2022-12-11 11:39 | disposition home or self-care (01) ==
PROVIDERS: PCP Internal Medicine; Visit Provider Internal Medicine
DX: J44.9 Chronic obstructive pulmonary disease, unspecified (principal); J30.9 Allergic rhinitis, unspecified; J96.91 Respiratory failure, unspecified with hypoxia
CPT/HCPCS: 99213

== ENCOUNTER → 2022-12-11 10:51 | Outpatient (BNVA) | payer MEDICARE, SELFPAY | PROVIDERS: PCP Internal Medicine; Visit Provider Internal Medicine | DX: J44.9 Chronic obstructive pulmonary disease, unspecified (principal); J96.91 Respiratory failure, unspecified with hypoxia; J30.9 Allergic rhinitis, unspecified | CPT/HCPCS: 99212 ==

== ENCOUNTER 2023-04-03 09:24 | Outpatient (AMB) | payer MEDICARE, SELFPAY ==
[2023-04-03 09:24] VITALS: BP 130/62; PULSE 120; O2SAT 91; BMI 15.1
--- NOTE | 2023-04-03 09:24 | MHC.PC.OV ---
Vital Signs 04/03/23 09:24 Height 5 ft Weight 77 lb 6 oz BMI 15.1 BP 130/62 Blood Pressure Location Lt brachial Position Sitting Pulse 120 H Pulse Source Pulse Oximeter Pulse Oximetry (%) 91 L Oxygen Delivery Method Room Air Intake Visit Reasons: 6m follow up Obstetrics Gyn Physician Required: No Accompanied by: Self / Same As Patient Allergies Sulfamethoxazole-TMP DS Allergy (Intermediate, Uncoded 04/03/23 09:29) tongue swelling Medication List - Last Reconciled 04/03/23 by Wilton Alfaro MD albuterol sulfate 90 mcg/actuation (ProAir HFA) 2 puffs inhalation Q4-6H PRN 30 days amlodipine 2.5 mg PO DAILY 90 days Anoro Ellipta 62.5-25 mcg/actuation (umeclidinium-vilanterol) 1 ea PO DAILY NS ascorbate calcium (vitamin C) 500 mg PO DAILY aspirin (Adult Low Dose Aspirin) 81 mg PO DAILY cholecalciferol (vitamin D3) 25 mcg PO DAILY escitalopram oxalate (Lexapro) 10 mg PO DAILY 90 days fluticasone propionate 50 mcg/actuation (Flonase Allergy Relief) 1 spray intranasal DAILY PRN 30 days mirtazapine 22.5 mg (1.5 x 15 mg) PO BEDTIME 90 days simvastatin 20 mg PO DAILY 90 days vitamin B complex (B Complex-Vitamin B12 tablet) 1 tab PO DAILY vitamin E 200 units PO BID Tobacco use date assessed: 04/03/23 Fall risk assessment: 1 Fall in past year Last assessed Fall Risk: 04/03/23 Dental Screening Dental Screen Date: 04/03/23 Did you have a dental visit in the last 12 months?: Yes Did you have a dental problem in the last 6 months where you did not have access to dental care?: No Was dental information given to patient?: Patient has dentist HPI 6m follow up HPI Details patient is a 72-year-old female , came in for her regular follow-up appointment Patient have a history of tachycardia due to severe COPD, history of anxiety, difficulty sleeping, osteoporosis, hypertension, Vitamin-D deficiency, allergies, lipid disorder Patient is oxygen dependent 2 L of oxygen Blood pressure is stable patient is on amlodipine 2.5 mg Continue Lexapro for anxiety mirtazapine 22.5 to sleep at night Continue simvastatin 20 mg daily COPD management through Dr. Valderrama patient is oxygen dependent Due for labs today as well Follow-up 3 months [facility] Medical History Respiratory failure with hypoxia Respiratory failure with hypoxia Stroke COPD (chronic obstructive pulmonary disease) Social History Housing: House Alcohol intake: current Alcohol intake frequency: holidays/special occasions only Patient Tobacco Use Status: Former Tobacco user Quit Date: 2012 Tobacco use type: Cigarette e-Cigarette/Vaping Use: Never Used service: No Current occupational status: retired Cognitive needs: No Hearing needs: No Vision needs: Yes Questionnaire PHQ-9 Over the last 2 weeks, how often have you been bothered by any of the following problems? 1. Little interest or pleasure in doing things: not at all 2. Feeling down, depressed, or hopeless: not at all 3. Trouble falling or staying asleep, or sleeping too much: not at all 4. Feeling tired or having little energy: not at all 5. Poor appetite or overeating: not at all 6. Feeling bad about yourself - or that you are a failure or have let yourself or your family down: not at all 7. Trouble concentrating on things, such as reading the newspaper or watching television: not at all 8. Moving or speaking so slowly that other people could have noticed. Or the opposite - being so fidgety or restless that you have been moving around a lot more than usual: not at all 9. Thoughts that you would be better off or of hurting yourself in some way: not at all Total score: 0 Depression Screening Interpretation: Negative Depression Screening Done: Yes 67559 - PHQ-9 Billing: Yes Source: Developed by Drs. Maico Carpenter, Adelia Adan, Bladimir Lilly and colleagues, with an educational nasra from [employer]. Thrive Questionnaire Date Thrive assessed: 04/03/23 I am a: Patient What is your living situation today?: I have a steady place to live Within the past 12 months, did the food you bought not last and you didn't have the money to get more?: Never true Within the past 12 months, did you worry whether your food would run out before you got money to buy more?: Never true Do you have trouble paying for medicines?: No Do you have trouble getting transportation to medical appointments?: No Do you have trouble paying your heating and electricity bill?: No Do you have trouble taking care of your child, family member or friend?: No Do you have trouble with day-to-day activities such as bathing, preparing meals, shopping, managing finances, etc.?: No Are you currently unemployed and looking for a job?: No Are you interested in more education?: No Please select the resources that you would like help with: None Currently or been in a relationship where the following occur: no concerns reported THRIVE Score: 0 MAHAD-7 AMB Questionnaire MAHAD-7 Date MAHAD - 7 assessed: 04/03/23 Feeling nervous, anxious, or on edge: 0 = Not at all Not being able to stop or control worryin = Not at all Worrying too much about different things: 0 = Not at all Trouble relaxin = Not at all Being so restless that it is hard to sit still: 0 = Not at all Becoming easily annoyed or irritable: 0 = Not at all Feeling afraid as if something awful might happen: 0 = Not at all Total MAHAD-7 score (0-4 normal; 5-9 mild; 10-14 moderate; 15-21 severe): 0 Source: Developed by Drs. Maico Carpenter, Adelia Adan, Bladimir Lilly and colleagues, with an educational nasra from [employer]. MAHAD-7 Assessment Billing MAHAD-7 Assessment Tool: MAHAD-7 Assessment 86783 Review of Systems Const Denies chills and Denies fever(s) ENT Denies epistaxis and Denies nasal discharge Card Denies chest pain Resp Denies chest congestion, Denies cough and Denies hemoptysis GI Denies diarrhea and Denies nausea Skin/Breast Denies rash Neuro Reports no additional complaints Psych Reports no additional complaints Endo Reports no additional complaints Physical exam (Primary Care) Vital Signs: Last Vital Signs Pulse 120 H 04/03/23 09:24 BP 130/62 04/03/23 09:24 Pulse Ox 91 L 04/03/23 09:24 Oxygen Delivery Method Room Air 04/03/23 09:24 BMI result Body Mass Index 15.1 Tobacco/Smoking Status: Tobacco use Status Tobacco use date assessed 04/03/23 04/03/23 09:31 Patient Tobacco Use Status Former Tobacco user 04/03/23 09:24 Tobacco use type Cigarette 04/03/23 09:24 e-Cigarette/Vaping Use Never Used 04/03/23 09:24 PHQ-9: PHQ-9 Score PHQ-9: Total score 0 04/03/23 09:44 Depression Screening Interpretation: Negative Thrive Assessment: Date of Thrive Assessment Date Thrive assessed 04/03/23 04/03/23 09:31 Currently or been in a relationship where the following occur: no concerns reported Const General: cooperative, comfortable and no acute distress Orientation/consciousness: patient oriented x3 HENMT Head: Yes normocephalic Eyes General: appearance normal, both eyes and all related structures Neck Neck: Yes supple Resp Effort & Inspection: normal respiratory effort, no cough and no stridor Cardio Rhythm: regular rhythm Heart sounds: S1 normal heart sound present and S2 normal heart sound present Skin General skin exam: turgor normal Neuro General: patient oriented x3, tone normal and moves all extremities Extrem Right lower extremity: no edema Left lower extremity: no edema Assessment and Plan Assessment & Plan (1) COPD, severe: Code(s): J44.9 - Chronic obstructive pulmonary disease, unspecified (2) Lipid disorder: Code(s): E78.9 - Disorder of lipoprotein metabolism, unspecified (3) Difficulty sleeping: Code(s): G47.9 - Sleep disorder, unspecified (4) Allergic rhinitis: Comment: MILD, MOSTLY DUE TO ALLERGY TO THE DOG, SHE TRIES TO STAY WAY FROM THE DOG MUCH POSSIBLE. TX FLONASE ALLERGY - 50 Mcgm. NASAL SPRAY 2 SPRAY EACH NOSTRIL DAILY Code(s): J30.9 - Allergic rhinitis, unspecified Qualifiers: Allergic rhinitis trigger: animal hair and dander Qualified Code(s): J30.81 - Allergic rhinitis due to animal (cat) (dog) hair and dander (5) Elevated fasting blood sugar: Code(s): R73.01 - Impaired fasting glucose (6) Anxiety, generalized: Code(s): F41.1 - Generalized anxiety disorder (7) LFT elevation: Code(s): R79.89 - Other specified abnormal findings of blood chemistry (8) Tachycardia: Code(s): R00.0 - Tachycardia, unspecified (9) Osteoporosis: Code(s): M81.0 - Age-related osteoporosis without current pathological fracture Qualifiers: Osteoporosis type: age-related Presence of current pathological fracture: without current pathological fracture Qualified Code(s): M81.0 - Age-related osteoporosis without current pathological fracture Plan patient is a 72-year-old female , came in for her regular follow-up appointment Patient have a history of tachycardia due to severe COPD, history of anxiety, difficulty sleeping, osteoporosis, hypertension, Vitamin-D deficiency, allergies, lipid disorder, mild LFT elevation Patient is oxygen dependent 2 L of oxygen Blood pressure is stable patient is on amlodipine 2.5 mg Continue Lexapro for anxiety mirtazapine 22.5 to sleep at night Continue simvastatin 20 mg daily COPD management through Dr. Valderrama patient is oxygen dependent Due for labs today as well Follow-up 3 months Orders: Orders Lipid Panel Today E78.9 - Disorder of lipoprotein metabolism, unspecified, F41.1 - Generalized anxiety disorder, G47.9 - Sleep disorder, unspecified, J44.9 - Chronic obstructive pulmonary disease, unspecified, M81.0 - Age-related osteoporosis without current pathological fracture, R73.01 - Impaired fasting glucose, R79.89 - Other specified abnormal findings of blood chemistry Vitamin B12 Today E78.9 - Disorder of lipoprotein metabolism, unspecified, F41.1 - Generalized anxiety disorder, G47.9 - Sleep disorder, unspecified, J44.9 - Chronic obstructive pulmonary disease, unspecified, M81.0 - Age-related osteoporosis without current pathological fracture, R73.01 - Impaired fasting glucose, R79.89 - Other specified abnormal findings of blood chemistry Complete Blood Count Auto Diff Today E78.9 - Disorder of lipoprotein metabolism, unspecified, F41.1 - Generalized anxiety disorder, G47.9 - Sleep disorder, unspecified, J30.9 - Allergic rhinitis, unspecified, J44.9 - Chronic obstructive pulmonary disease, unspecified, M81.0 - Age-related osteoporosis without current pathological fracture, R00.0 - Tachycardia, unspecified, R73.01 - Impaired fasting glucose, R79.89 - Other specified abnormal findings of blood chemistry Comprehensive [place]. Panel Fast Today E78.9 - Disorder of lipoprotein metabolism, unspecified, F41.1 - Generalized anxiety disorder, G47.9 - Sleep disorder, unspecified, J44.9 - Chronic obstructive pulmonary disease, unspecified, M81.0 - Age-related osteoporosis without current pathological fracture, R73.01 - Impaired fasting glucose, R79.89 - Other specified abnormal findings of blood chemistry Vitamin D 25-OH (D2 and D3) Today E78.9 - Disorder of lipoprotein metabolism, unspecified, F41.1 - Generalized anxiety disorder, G47.9 - Sleep disorder, unspecified, J44.9 - Chronic obstructive pulmonary disease, unspecified, M81.0 - Age-related osteoporosis without current pathological fracture, R73.01 - Impaired fasting glucose, R79.89 - Other specified abnormal findings of blood chemistry Coding Level of Care Code Est Pt Level 4 (55686) Diagnoses COPD, severe J44.9 Lipid disorder E78.9 Difficulty sleeping G47.9 Allergic rhinitis due to animal hair and dander J30.81 Allergic rhinitis trigger: animal hair and dander Elevated fasting blood sugar R73.01 Anxiety, generalized F41.1 LFT elevation R79.89 Tachycardia R00.0 Age-related osteoporosis without current pathological fracture M81.0 Osteoporosis type: age-related Presence of current pathological fracture: without current pathological fracture Additional Codes MAHAD-7 Assessment Billing - MAHAD-7 Assessment Tool: MAHAD-7 Assessment [id number] ([id number])
== END 2023-04-03 10:57 | disposition home or self-care (01) ==
PROVIDERS: PCP Internal Medicine; Visit Provider Internal Medicine
DX: J44.9 Chronic obstructive pulmonary disease, unspecified (principal); E78.9 Disorder of lipoprotein metabolism, unspecified; G47.9 Sleep disorder, unspecified; J30.81 Allergic rhinitis due to animal (cat) (dog) hair and dander; R73.01 Impaired fasting glucose; F41.1 Generalized anxiety disorder; R79.89 Other specified abnormal findings of blood chemistry; R00.0 Tachycardia, unspecified; M81.0 Age-related osteoporosis without current pathological fracture
CPT/HCPCS: 99214

== ENCOUNTER 2023-04-03 09:53 | Outpatient (REF) | payer MEDICARE, OTHER, SELFPAY ==
[2023-04-03 13:37] LABS: MANUAL DIFF FLAG NO
[2023-04-03 13:44] LABS: Basophils Absolute Auto 0.1 X10*3/uL (0.0-0.2); Basophils Percent Auto 0.6 % (0-2); Eosinophils Absolute Auto 0.1 X10*3/uL (0.0-0.4); Eosinophils Percent Auto 0.6 % (0-4); Hematocrit 44.2 % (37.0-47.0); Hemoglobin 14.2 g/dl (12.0-16.0); Imm Gran Abs Auto 0.03 X10*3/uL (0.00-0.03); Imm Gran Pct Auto 0.3 % (0.0-0.4); Lymphocytes Absolute Auto 1.7 X10*3/uL (1.2-4.9); Lymphocytes Percent Auto 16.6 % (20-40); Mean Corpuscular HGB Conc 32.1 g/dl (31.0-35.0); Mean Corpuscular Hemoglobin 30.7 pg (27.0-33.0); Mean Corpuscular Volume 95.7 fL (80.0-98.0); Mean Platelet Volume 10.9 fL (9.4-12.3); Monocytes Absolute Auto 0.9 X10*3/uL (0.1-1.2); Monocytes Percent Auto 8.5 % (2-11); Neutrophils Absolute Auto 7.7 x10*3/uL (2.0-8.3); Neutrophils Percent Auto 73.4 % (45-73); Platelet Count 331 X10*3/uL (160-400); Red Blood Count 4.62 X10*6/uL (4.20-5.50); Red Cell Distribution Width 14.1 % (11.0-16.0); White Blood Count 10.5 X10*3/uL (4.8-10.8)
[2023-04-03 14:35] LABS: Alanine Aminotransferase 20 U/L (0-31); Albumin Level 4.5 g/dL (3.5-5.0); Alkaline Phosphatase 88 U/L (39-117); Anion Gap 16 (12-20); Aspartate Amino Transferase 26 U/L (5-31); Bilirubin Total 0.4 mg/dL (0.0-1.0); Blood Urea Nitrogen 17 mg/dL (9-16); Calcium 10.4 mg/dL (8.4-10.2); Carbon Dioxide 25 mmol/L (22-29); Chloride 103 mmol/L (96-108); Cholesterol 285 mg/dL (<200); Estimated Glomerular Filt Rate > 60; Glucose Fasting 147 mg/dL (60-99); HDL Cholesterol 95 mg/dL (>40); LDL Cholesterol Calculated 162 mg/dL (<100); Sodium 140 mmol/L (135-145); Total Protein 7.9 g/dL (6.5-8.0); Triglycerides 142 mg/dL (<150)
[2023-04-03 15:10] LABS: Vitamin B12 596 pg/mL (200-900)
[2023-04-07 16:47] LABS: Vitamin D 25-OH, D2 4 ng/mL; Vitamin D 25-OH, D3 25 ng/mL; Vitamin D 25-OH, Total 29 ng/mL (30-100)
== END 2023-04-03 09:54 | disposition home or self-care (01) ==
LOC: HO.HMGCLDS 09:53
PROVIDERS: PCP Internal Medicine; Visit Provider Internal Medicine
DX: G47.9 Sleep disorder, unspecified (principal); E78.9 Disorder of lipoprotein metabolism, unspecified; R73.01 Impaired fasting glucose; F41.1 Generalized anxiety disorder; R79.89 Other specified abnormal findings of blood chemistry; M81.0 Age-related osteoporosis without current pathological fracture; J44.9 Chronic obstructive pulmonary disease, unspecified; J30.9 Allergic rhinitis, unspecified; R00.0 Tachycardia, unspecified
CPT/HCPCS: 36415; 80053; 80061; 82306; 82607; 85025

== ENCOUNTER 2023-06-08 10:50 | Outpatient (AMB) | payer MEDICARE, MEDICAID, SELFPAY ==
--- NOTE | 2023-06-08 10:54 | MHC.OFFVIS ---
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 Allergies Sulfamethoxazole-TMP DS Allergy (Intermediate, Uncoded 06/08/23 11:09) tongue swelling Medication List - Last Reconciled 06/08/23 by Lyly Valderrama MD albuterol sulfate 90 mcg/actuation (ProAir HFA) 2 puffs inhalation Q4-6H PRN 30 days amlodipine 2.5 mg PO DAILY 90 days Anoro Ellipta 62.5-25 mcg/actuation (umeclidinium-vilanterol) 1 ea PO DAILY NS ascorbate calcium (vitamin C) 500 mg PO DAILY aspirin (Adult Low Dose Aspirin) 81 mg PO DAILY cholecalciferol (vitamin D3) 25 mcg PO DAILY escitalopram oxalate (Lexapro) 10 mg PO DAILY 90 days fluticasone propionate 50 mcg/actuation (Flonase Allergy Relief) 1 spray intranasal DAILY PRN 30 days mirtazapine 22.5 mg (1.5 x 15 mg) PO BEDTIME 90 days simvastatin 20 mg PO DAILY 90 days vitamin B complex (B Complex-Vitamin B12 tablet) 1 tab PO DAILY vitamin E 200 units PO BID Do you need a note to return to daycare/school/sports/work: No HPI COPD HPI Details This 73 years old very pleasant female of a thin build, is here for follow-up after 6 months. As far as COPD is concerned she has remained very stable and luckily without any acute exacerbations. She continues to use Anoro Ellipta once a day and albuterol only as needed. She stays on oxygen 2 L/minute 24 hours a day, except when she is resting at home she does not need oxygen. Today she did come with her portable O2. She has put on a few lb of weight. [facility] Medical History Respiratory failure with hypoxia Respiratory failure with hypoxia Stroke COPD (chronic obstructive pulmonary disease) Social History (Reviewed 06/08/23 @ 11:00 by KORY Rose Housing: House Alcohol intake: current Alcohol intake frequency: holidays/special occasions only Patient Tobacco Use Status: Former Tobacco user Quit Date: 2012 Tobacco use type: Cigarette e-Cigarette/Vaping Use: Never Used service: No Current occupational status: retired Cognitive needs: No Hearing needs: No Vision needs: Yes Review of Systems Const All systems reviewed & are unremarkable except as noted in HPI and below Eyes Reports no additional complaints ENT Reports nasal congestion (MILD INTERMITTENT) Card Denies chest pain, Denies irregular heart rhythm and Denies leg edema Resp Reports as per HPI GI Reports no additional complaints and Reports other (APPETITE IS FAIR BUT SHE EATS IN SMALL AMOUNTS) Reports no additional complaints Musc Reports no additional complaints Skin/Breast Reports system reviewed and no additional complaints, except as documented Neuro Reports no additional complaints Psych Reports depression (CONTROLLED WITH MED) Physical Exam Vital Signs: Last Vital Signs Pulse 112 H 06/08/23 10:55 BP 120/60 06/08/23 10:55 Pulse Ox 96 06/08/23 10:55 Oxygen Delivery Method Nasal Cannula 06/08/23 10:55 Oxygen Flow Rate 2 06/08/23 10:55 BMI result Body Mass Index 15.7 Const General: comfortable, no acute distress, alert and awake Orientation/consciousness: patient oriented x3 HEENT Head: Yes normal to inspection General nose exam: No nasal polyps present and No nasal discharge present Face and sinus: Yes sinuses nontender Mouth: oropharynx normal Teeth and gingiva: poor dentition Throat: Yes posterior oropharynx normal Eyes General: appearance normal, both eyes and all related structures Neck Neck: Yes normal visual inspection, Yes no lymphadenopathy, Yes trachea midline and Yes no JVD Thyroid: Thyroid normal Chest Chest palpation & inspection: normal inspection of the chest, normal palpation of entire chest wall and no tenderness Resp Other: PERCUSSION NOTE IS RESONANT, BREATH SOUNDS ARE DISTANT WITH PROLONGED EXPIRATORY PHASE. NO WHEEZES OR RHONCHI OR CREPITATIONS ARE HEARD. Cardio Palpation: normal PMI Rate: regular rate Rhythm: regular rhythm Heart sounds: no gallops and no murmurs GI Palpation (GI): Soft to palpation, nontender, No hepatosplenomegaly present and no masses Auscultation: normal bowel sounds Back/Spine/Pelvis Thoracic/Lumbar Spine: thoracic and lumbar spine normal to inspection and thoraco-lumbar ROM limited Skin General skin exam: no rashes or lesions noted Neuro General: patient oriented x3 and no focal motor deficits Cranial nerves: Yes CN's II-XII intact bilaterally Extrem General: Yes normal to inspection, Yes no clubbing, cyanosis or edema and Yes no calf tenderness Psych Appearance: grossly normal and well kempt Speech and movement: Normal speech and movement present Assessment & Plan Assessment & Plan (1) COPD, severe: Comment: RELATIVELY SEVERE CHRONIC OBSTRUCTIVE PULMONARY DISEASE BUT IT IS STAYING QUITE STABLE AT THIS TIME. Code(s): J44.9 - Chronic obstructive pulmonary disease, unspecified Plan: [place] : NORO ELLIPTA 1 INHALATION DAILY. TO CONTINUE. AND PROAIR 2 PUFFS Q 4-6 HOURS ONLY P.R.N. (2) Respiratory failure with hypoxia: Comment: PATIENT DOES HAVE CHRONIC HYPOXEMIA DUE TO HER ADVANCED COPD, SHE IS SUPPOSED ON O2 2 L/MINUTE, WITH STATIONARY CONCENTRATOR AND IS ADVISED TO USE AT NIGHT WELL . P.R.N. DURING THE DAYTIME SHE ALSO NEEDS O2 2 L/MINUTE WHEN GOING OUTDOORS OR DOING ANT PHYSICAL ACTIVITY. SHE DOES HAVE A PORTABLE CYLINDER WHICH SHE CAN TAKE ALONG WHEN SHE GOES OUTDOORS. Code(s): J96.91 - Respiratory failure, unspecified with hypoxia Plan: ABOVE (3) Allergic rhinitis: Comment: MILD, MOSTLY DUE TO ALLERGY TO THE DOG, SHE TRIES TO STAY WAY FROM THE DOG MUCH POSSIBLE. Code(s): J30.9 - Allergic rhinitis, unspecified Qualifiers: Allergic rhinitis trigger: animal hair and dander Qualified Code(s): J30.81 - Allergic rhinitis due to animal (cat) (dog) hair and dander Plan: TX: FLONASE ALLERGY - 50 Mcgm. 2 SPRAY EACH NOSTRIL DAILY Coding Level of Care Code Est Pt Level 3 (90450) Diagnoses COPD, severe J44.9 Respiratory failure with hypoxia J96.91 Allergic rhinitis due to animal hair and dander J30.81 Allergic rhinitis trigger: animal hair and dander
[2023-06-08 10:55] VITALS: BP 120/60; PULSE 112; O2SAT 96; BMI 15.7
== END 2023-06-08 11:15 | disposition home or self-care (01) ==
PROVIDERS: PCP Internal Medicine; Referring Provider Internal Medicine; Visit Provider Internal Medicine
DX: J44.9 Chronic obstructive pulmonary disease, unspecified (principal); J96.91 Respiratory failure, unspecified with hypoxia; J30.81 Allergic rhinitis due to animal (cat) (dog) hair and dander
CPT/HCPCS: 99213

== ENCOUNTER → 2023-06-08 10:50 | Outpatient (BNVA) | payer MEDICARE, MEDICAID, SELFPAY | PROVIDERS: PCP Internal Medicine; Visit Provider Internal Medicine | DX: J44.9 Chronic obstructive pulmonary disease, unspecified (principal); J96.91 Respiratory failure, unspecified with hypoxia; J30.81 Allergic rhinitis due to animal (cat) (dog) hair and dander | CPT/HCPCS: 99212 ==

== ENCOUNTER 2023-07-07 09:54 | Outpatient (AMB) | payer MEDICARE, SELFPAY ==
--- NOTE | 2023-07-07 09:55 | MHC.PC.OV ---
Vital Signs 07/07/23 09:56 Height 5 ft Weight 81 lb 2 oz BMI 15.8 BP 124/68 Blood Pressure Location Lt brachial Position Sitting Pulse 107 H Pulse Source Pulse Oximeter Pulse Oximetry (%) 95 Oxygen Delivery Method Nasal Cannula Intake Visit Reasons: 9 month follow up Allergies Sulfamethoxazole-TMP DS Allergy (Intermediate, Uncoded 07/07/23 09:56) tongue swelling Medication List - Last Reconciled 07/07/23 by Wilton Alfaro MD albuterol sulfate 90 mcg/actuation (ProAir HFA) 2 puffs inhalation Q4-6H PRN 30 days amlodipine 2.5 mg PO DAILY 90 days Anoro Ellipta 62.5-25 mcg/actuation (umeclidinium-vilanterol) 1 ea PO DAILY NS ascorbate calcium (vitamin C) 500 mg PO DAILY aspirin (Adult Low Dose Aspirin) 81 mg PO DAILY cholecalciferol (vitamin D3) 25 mcg PO DAILY escitalopram oxalate (Lexapro) 10 mg PO DAILY 90 days fluticasone propionate 50 mcg/actuation (Flonase Allergy Relief) 1 spray intranasal DAILY PRN 30 days mirtazapine 22.5 mg (1.5 x 15 mg) PO BEDTIME 90 days simvastatin 20 mg PO DAILY 90 days vitamin B complex (B Complex-Vitamin B12 tablet) 1 tab PO DAILY vitamin E 200 units PO BID Tobacco use date assessed: 07/07/23 Fall risk assessment: No Falls in past year Last assessed Fall Risk: 07/07/23 Dental Screening Dental Screen Date: 07/07/23 Did you have a dental visit in the last 12 months?: No Did you have a dental problem in the last 6 months where you did not have access to dental care?: No Was dental information given to patient?: Patient has dentist HPI 9 month follow up HPI Details Patient is a 73-year-old female , came in for her regular follow-up appointment Patient have a history of tachycardia due to severe COPD, history of anxiety, difficulty sleeping, osteoporosis, hypertension, Vitamin-D deficiency, allergies, lipid disorder, mild LFT elevation[stable] Patient is oxygen dependent 2 L of oxygen Blood pressure is stable patient is on amlodipine 2.5 mg Continue Lexapro for anxiety mirtazapine 22.5 to sleep at night Continue simvastatin 20 mg daily COPD management through Dr. Valderrama patient is oxygen dependent Her fasting hemoglobin A1c came back at 147 in March We did the hemoglobin A1c which is 6.1 Diabetic diet explained to patient She also have elevated LDL at 162. Once again we discussed the diet Labs are needed before next visit fasting Follow-up 3 months [facility] Medical History Respiratory failure with hypoxia Respiratory failure with hypoxia Stroke COPD (chronic obstructive pulmonary disease) Social History Housing: House Alcohol intake: current Alcohol intake frequency: holidays/special occasions only Patient Tobacco Use Status: Former Tobacco user Quit Date: 2012 Tobacco use type: Cigarette e-Cigarette/Vaping Use: Never Used service: No Current occupational status: retired Cognitive needs: No Hearing needs: No Vision needs: Yes Questionnaire Thrive Questionnaire Date Thrive assessed: 04/03/23 AUDIT C Alcohol Use Questionnaire (AUDIT-C) 1. How often do you have a drink containing alcohol?: Never 3. How often do you have six or more drinks on one occasion?: Never Total Score: 0 Score Reviewed/Action Taken: Yes MAHAD-7 AMB Questionnaire MAHAD-7 Date MAHAD - 7 assessed: 04/03/23 Source: Developed by Drs. Maico Carpenter, Adelia Adan, Bladimir Lilly and colleagues, with an educational nasra from [employer]. Review of Systems Const Denies chills and Denies fever(s) ENT Denies epistaxis and Denies nasal discharge Card Denies chest pain Resp Denies chest congestion, Denies cough and Denies hemoptysis GI Denies diarrhea and Denies nausea Skin/Breast Denies rash Neuro Reports no additional complaints Psych Reports no additional complaints Endo Reports no additional complaints Physical exam (Primary Care) Vital Signs: Last Vital Signs Pulse 107 H 07/07/23 09:56 BP 124/68 07/07/23 09:56 Pulse Ox 95 07/07/23 09:56 Oxygen Delivery Method Nasal Cannula 07/07/23 09:56 BMI result Body Mass Index 15.8 Tobacco/Smoking Status: Tobacco use Status Tobacco use date assessed 07/07/23 07/07/23 10:01 Patient Tobacco Use Status Former Tobacco user 07/07/23 10:01 Tobacco use type Cigarette 07/07/23 10:01 e-Cigarette/Vaping Use Never Used 07/07/23 10:01 Thrive Assessment: Date of Thrive Assessment Date Thrive assessed 04/03/23 07/07/23 10:01 Const General: cooperative, comfortable and no acute distress Orientation/consciousness: patient oriented x3 HENMT Head: Yes normocephalic Eyes General: appearance normal, both eyes and all related structures Neck Neck: Yes supple Resp Effort & Inspection: no cough and no stridor Cardio Rhythm: regular rhythm Heart sounds: S1 normal heart sound present and S2 normal heart sound present Skin General skin exam: turgor normal Neuro General: patient oriented x3, tone normal and moves all extremities Extrem Right lower extremity: no edema Left lower extremity: no edema Results AMB Hemoglobin A1c AMB Hemoglobin A1c 6.1 % Last Edit by Amanda Verduzco CMA on 07/07/23 10:14 Results Reviewed Results Reviewed: Laboratory Last Values Hgb A1c (Clinic) 6.1 % (4.0-6.0) H 07/07/23 10:12 Assessment and Plan Assessment & Plan (1) Diabetes type 2, controlled: Code(s): E11.9 - Type 2 diabetes mellitus without complications Qualifiers: Diabetes mellitus complication status: with other specified complication Diabetes mellitus half-way insulin use: without half-way use Qualified Code(s): E11.69 - Type 2 diabetes mellitus with other specified complication (2) COPD, severe: Code(s): J44.9 - Chronic obstructive pulmonary disease, unspecified (3) Lipid disorder: Code(s): E78.9 - Disorder of lipoprotein metabolism, unspecified (4) Difficulty sleeping: Code(s): G47.9 - Sleep disorder, unspecified (5) Allergic rhinitis: Comment: MILD, MOSTLY DUE TO ALLERGY TO THE DOG, SHE TRIES TO STAY WAY FROM THE DOG MUCH POSSIBLE. Code(s): J30.9 - Allergic rhinitis, unspecified Qualifiers: Allergic rhinitis trigger: animal hair and dander Qualified Code(s): J30.81 - Allergic rhinitis due to animal (cat) (dog) hair and dander (6) Anxiety, generalized: Code(s): F41.1 - Generalized anxiety disorder (7) LFT elevation: Code(s): R79.89 - Other specified abnormal findings of blood chemistry (8) Tachycardia: Code(s): R00.0 - Tachycardia, unspecified (9) Osteoporosis: Code(s): M81.0 - Age-related osteoporosis without current pathological fracture Qualifiers: Osteoporosis type: age-related Presence of current pathological fracture: without current pathological fracture Qualified Code(s): M81.0 - Age-related osteoporosis without current pathological fracture Plan Patient is a 73-year-old female , came in for her regular follow-up appointment Patient have a history of tachycardia due to severe COPD, history of anxiety, difficulty sleeping, osteoporosis, hypertension, Vitamin-D deficiency, allergies, lipid disorder, mild LFT elevation[stable] Patient is oxygen dependent 2 L of oxygen Blood pressure is stable patient is on amlodipine 2.5 mg Continue Lexapro for anxiety mirtazapine 22.5 to sleep at night Continue simvastatin 20 mg daily COPD management through Dr. Valderrama patient is oxygen dependent Her fasting hemoglobin A1c came back at 147 in March We did the hemoglobin A1c which is 6.1 Diabetic diet explained to patient She also have elevated LDL at 162. Once again we discussed the diet Labs are needed before next visit fasting Follow-up 3 months Orders: Orders Hemoglobin A1c Today E11.9 - Type 2 diabetes mellitus without complications, F41.1 - Generalized anxiety disorder, J44.9 - Chronic obstructive pulmonary disease, unspecified Comprehensive [place]. Panel Fast Today E11.9 - Type 2 diabetes mellitus without complications, F41.1 - Generalized anxiety disorder, J44.9 - Chronic obstructive pulmonary disease, unspecified Lipid Panel Today E11.9 - Type 2 diabetes mellitus without complications, F41.1 - Generalized anxiety disorder, J44.9 - Chronic obstructive pulmonary disease, unspecified AMB Hemoglobin A1c Today R73.01 - Impaired fasting glucose Microalbumin, Random (w Creat) Today E11.9 - Type 2 diabetes mellitus without complications, F41.1 - Generalized anxiety disorder, J44.9 - Chronic obstructive pulmonary disease, unspecified Complete Blood Count Auto Diff Today E11.9 - Type 2 diabetes mellitus without complications, F41.1 - Generalized anxiety disorder, J44.9 - Chronic obstructive pulmonary disease, unspecified Medications: Refilled cholecalciferol (vitamin D3) 25 mcg PO DAILY 90 caps 0RF fluticasone propionate 50 mcg/actuation (Flonase Allergy Relief) administer into each nostril 1 spray intranasal DAILY PRN 16 grams 1RF nasal congestion 30 days amlodipine 2.5 mg PO DAILY 90 tabs 0RF 90 days escitalopram oxalate (Lexapro) 10 mg PO DAILY 90 tabs 0RF 90 days F41.1 - Generalized anxiety disorder mirtazapine 22.5 mg (1.5 x 15 mg) PO BEDTIME 135 tabs 1RF 90 days simvastatin 20 mg PO DAILY 90 tabs 0RF 90 days E78.9 - Disorder of lipoprotein metabolism, unspecified Coding Level of Care Code Est Pt Level 4 (74112) Diagnoses Controlled type 2 diabetes mellitus with other specified complication, without long-term current use of insulin E11.69 Diabetes mellitus complication status: with other specified complication Diabetes mellitus half-way insulin use: without regional intermodal truck driver use COPD, severe J44.9 Lipid disorder E78.9 Difficulty sleeping G47.9 Allergic rhinitis due to animal hair and dander J30.81 Allergic rhinitis trigger: animal hair and dander Anxiety, generalized F41.1 LFT elevation R79.89 Tachycardia R00.0 Age-related osteoporosis without current pathological fracture M81.0 Osteoporosis type: age-related Presence of current pathological fracture: without current pathological fracture
[2023-07-07 09:56] VITALS: BP 124/68; PULSE 107; O2SAT 95; BMI 15.8
== END 2023-07-07 10:15 | disposition home or self-care (01) ==
PROVIDERS: PCP Internal Medicine; Visit Provider Internal Medicine
DX: E11.69 Type 2 diabetes mellitus with other specified complication (principal); J44.9 Chronic obstructive pulmonary disease, unspecified; E78.9 Disorder of lipoprotein metabolism, unspecified; G47.9 Sleep disorder, unspecified; J30.81 Allergic rhinitis due to animal (cat) (dog) hair and dander; F41.1 Generalized anxiety disorder; R79.89 Other specified abnormal findings of blood chemistry; R00.0 Tachycardia, unspecified; M81.0 Age-related osteoporosis without current pathological fracture; R73.01 Impaired fasting glucose
CPT/HCPCS: 83036; 99214

== ENCOUNTER 2023-11-17 10:56 | Outpatient (REF) | payer MEDICARE, MEDICAID, SELFPAY ==
--- NOTE | ~2023-11-17 | MM_ITS ---
EXAMINATION: MM SCREENING DIGITAL BREAST TOMOSYNTHESIS, BILATERAL CLINICAL INFORMATION: Screening. Asymptomatic. COMPARISON: Mammography: Comparison is made with available priors TECHNIQUE: Digital breast mammography with tomosynthesis is performed in both the craniocaudal and mediolateral oblique views along with computer-aided detection (CAD). FINDINGS: The breasts are heterogeneously dense, which may obscure small masses (ACR BI-RADS breast composition Category c). There are no significant masses, abnormal calcifications, or other abnormalities. MM/MM tomosynthesis screening BI IMPRESSION: No mammographic evidence of malignancy. ASSESSMENT: BI-RADS BI-RADS 1 - Negative RECOMMENDATION: Routine annual mammography screening. 1 year F/U This examination should not preclude the clinical evaluation of a suspicious palpable abnormality. This patient's information was entered into a reminder system with a target due date for their next mammogram. Electronically signed by: Dee Smith DO 12/06/2023 09:13 AM EDT
== END 2023-11-17 10:57 | disposition home or self-care (01) ==
LOC: HO.MAMMO 10:56
PROVIDERS: PCP Internal Medicine; Visit Provider Internal Medicine
DX: Z12.31 Encounter for screening mammogram for malignant neoplasm of breast (principal)
CPT/HCPCS: 77063; 77067

== ENCOUNTER → 2023-11-17 11:15 | Outpatient (BNV) | payer MEDICARE, MEDICAID, SELFPAY | PROVIDERS: PCP Internal Medicine; Visit Provider Internal Medicine | DX: Z12.31 Encounter for screening mammogram for malignant neoplasm of breast (principal) | CPT/HCPCS: 77063; 77067 ==

== ENCOUNTER 2023-11-30 09:48 | Outpatient (REF) | payer MEDICARE, OTHER, SELFPAY ==
[2023-11-30 13:46] LABS: MANUAL DIFF FLAG NO
[2023-11-30 13:54] LABS: Basophils Percent Auto 0.4 % (0-2); Eosinophils Absolute Auto 0.1 X10*3/uL (0.0-0.4); Hematocrit 41.6 % (37.0-47.0); Hemoglobin 13.6 g/dl (12.0-16.0); Imm Gran Abs Auto 0.01 X10*3/uL (0.00-0.03); Imm Gran Pct Auto 0.1 % (0.0-0.4); Lymphocytes Absolute Auto 1.6 X10*3/uL (1.2-4.9); Lymphocytes Percent Auto 22.7 % (20-40); Mean Corpuscular HGB Conc 32.7 g/dl (31.0-35.0); Mean Corpuscular Hemoglobin 31.6 pg (27.0-33.0); Mean Corpuscular Volume 96.7 fL (80.0-98.0); Mean Platelet Volume 11.4 fL (9.4-12.3); Monocytes Absolute Auto 0.7 X10*3/uL (0.1-1.2); Monocytes Percent Auto 9.5 % (2-11); Neutrophils Absolute Auto 4.7 x10*3/uL (2.0-8.3); Neutrophils Percent Auto 65.3 % (45-73); Platelet Count 237 X10*3/uL (160-400); Red Cell Distribution Width 13.2 % (11.0-16.0); White Blood Count 7.2 X10*3/uL (4.8-10.8)
[2023-11-30 14:14] LABS: Alanine Aminotransferase 36 U/L (0-31); Albumin Level 4.4 g/dL (3.5-5.0); Alkaline Phosphatase 81 U/L (39-117); Anion Gap 15 (12-20); Aspartate Amino Transferase 40 U/L (5-31); Bilirubin Total 0.9 mg/dL (0.0-1.0); Blood Urea Nitrogen 11 mg/dL (9-16); Calcium 9.9 mg/dL (8.4-10.2); Carbon Dioxide 30 mmol/L (22-29); Chloride 101 mmol/L (96-108); Cholesterol 186 mg/dL (<200); Estimated Glomerular Filt Rate > 60; Glucose Fasting 99 mg/dL (60-99); HDL Cholesterol 76 mg/dL (>40); LDL Cholesterol Calculated 90 mg/dL (<100); Potassium 4.7 mmol/L (3.3-5.1); Sodium 141 mmol/L (135-145); Total Protein 7.4 g/dL (6.5-8.0); Triglycerides 102 mg/dL (<150)
[2023-11-30 14:42] LABS: Estimated Average Glucose 117 mg/dL; Hemoglobin A1c % 5.7 % (<6.0)
[2023-11-30 14:44] LABS: Creatinine Urine 88.15 mg/dL; Microalbumin Urine < 5.0 mg/L
== END 2023-11-30 09:49 | disposition home or self-care (01) ==
LOC: HO.HMGCLDS 09:48
PROVIDERS: PCP Internal Medicine; Visit Provider Internal Medicine
DX: J44.9 Chronic obstructive pulmonary disease, unspecified (principal); F41.1 Generalized anxiety disorder; E11.9 Type 2 diabetes mellitus without complications
CPT/HCPCS: 36415; 80053; 80061; 82043; 82570; 83036; 85025

== ENCOUNTER 2023-12-04 12:25 | Outpatient (AMB) | payer MEDICARE, MEDICAID, SELFPAY ==
[2023-12-04 12:28] VITALS: BP 112/64; PULSE 102; O2SAT 96; BMI 15.4
--- NOTE | 2023-12-04 12:28 | MHC.PC.OV ---
Vital Signs 12/04/23 12:28 Height 5 ft Weight 79 lb BMI 15.4 BP 112/64 Blood Pressure Location Lt brachial Position Sitting Pulse 102 H Pulse Source Pulse Oximeter Pulse Oximetry (%) 96 Oxygen Delivery Method Nasal Cannula Intake Visit Reasons: PE Allergies Sulfamethoxazole-TMP DS Allergy (Intermediate, Uncoded 12/04/23 12:29) tongue swelling Medication List - Last Reconciled 12/04/23 by Wilton Alfaro MD albuterol sulfate 90 mcg/actuation (ProAir HFA) 2 puffs inhalation Q4-6H PRN 30 days amlodipine 2.5 mg PO DAILY 90 days Anoro Ellipta 62.5-25 mcg/actuation (umeclidinium-vilanterol) 1 ea PO DAILY NS ascorbate calcium (vitamin C) 500 mg PO DAILY aspirin (Adult Low Dose Aspirin) 81 mg PO DAILY cholecalciferol (vitamin D3) 25 mcg PO DAILY escitalopram oxalate (Lexapro) 10 mg PO DAILY 90 days fluticasone propionate 50 mcg/actuation (Flonase Allergy Relief) 1 spray intranasal DAILY PRN 30 days mirtazapine 22.5 mg (1.5 x 15 mg) PO BEDTIME 90 days simvastatin 20 mg PO DAILY 90 days vitamin B complex (B Complex-Vitamin B12 tablet) 1 tab PO DAILY vitamin E 200 units PO BID Tobacco use date assessed: 12/04/23 Fall risk assessment: No Falls in past year Last assessed Fall Risk: 12/04/23 Dental Screening Dental Screen Date: 07/07/23 HPI PE HPI Details Patient is a 73-year-old female came in today for physical examination Mammogram was just done Bone density was last year which showed osteoporosis, patient does not want to see a specialist or take any medications She has taken Fosamax for years and then stopped Patient is oxygen dependent COPD, get short of breath without oxygen She is being managed by Dr. Valderrama hydramatic specialist [facility] Blood pressure is stable patient is on amlodipine 2.5 mg She also did Lexapro for anxiety mirtazapine 22.5 to sleep at night Continue simvastatin 20 mg daily Labs were done this month reviewed Patient does not want to have anymore colonoscopies Follow-up 4 months [facility] Medical History Respiratory failure with hypoxia Respiratory failure with hypoxia Stroke COPD (chronic obstructive pulmonary disease) Surgical History No pertinent past surgical history Social History Housing: House Alcohol intake: current Alcohol intake frequency: holidays/special occasions only Patient Tobacco Use Status: Former Tobacco user Tobacco use type: Cigarette e-Cigarette/Vaping Use: Never Used service: No Current occupational status: retired Cognitive needs: No Hearing needs: No Vision needs: Yes Questionnaire Thrive Questionnaire Date Thrive assessed: 12/04/23 I am a: Patient What is your living situation today?: I have a steady place to live Within the past 12 months, did the food you bought not last and you didn't have the money to get more?: Never true Within the past 12 months, did you worry whether your food would run out before you got money to buy more?: Never true Do you have trouble paying for medicines?: No Do you have trouble getting transportation to medical appointments?: Yes Do you have trouble paying your heating and electricity bill?: Yes Do you have trouble taking care of your child, family member or friend?: No Do you have trouble with day-to-day activities such as bathing, preparing meals, shopping, managing finances, etc.?: No Are you interested in more education?: No Please select the resources that you would like help with: None Currently or been in a relationship where the following occur: I choose not to answer THRIVE Score: 2 AUDIT C Alcohol Use Questionnaire (AUDIT-C) 1. How often do you have a drink containing alcohol?: Monthly or less 2. How many drinks containing alcohol do you have on a typical day when you are drinking?: 1 or 2 3. How often do you have six or more drinks on one occasion?: Never Total Score: 1 MAHAD-7 AMB Questionnaire MAHAD-7 Date MAHAD - 7 assessed: 12/04/23 Feeling nervous, anxious, or on edge: 0 = Not at all Not being able to stop or control worryin = Not at all Worrying too much about different things: 0 = Not at all Trouble relaxin = Not at all Being so restless that it is hard to sit still: 0 = Not at all Becoming easily annoyed or irritable: 0 = Not at all Feeling afraid as if something awful might happen: 0 = Not at all Total MAHAD-7 score (0-4 normal; 5-9 mild; 10-14 moderate; 15-21 severe): 0 Source: Developed by Drs. Maico Carpenter, Adelia Adan, Bladimir Lilly and colleagues, with an educational nasra from [employer]. Review of Systems Const Denies chills, Denies fever(s) and Denies headache(s) Eyes Denies blurry vision ENT Denies headache(s), Denies nasal discharge, Denies nasal obstruction, Denies odynophagia and Denies sinus pain Card Denies chest pain at rest and Denies chest pain with activity Resp Denies hemoptysis GI Denies diarrhea, Denies odynophagia, Denies vomiting and Denies hematemesis Reports as per HPI Musc Denies abnormal gait Skin/Breast Reports as per HPI Neuro Denies Neuro-related abnormal movements, Denies Abnormal speech present, Denies abnormal gait, Denies headache(s) and Denies Sensory deficit (Neuro) Psych Denies mood swings and Denies paranoia Endo Reports as per HPI Renan/Lymph Reports as per HPI Aller/Immun Reports as per HPI Physical exam (Primary Care) Vital Signs: Last Vital Signs Pulse 102 H 12/04/23 12:28 BP 112/64 12/04/23 12:28 Pulse Ox 96 12/04/23 12:28 Oxygen Delivery Method Nasal Cannula 12/04/23 12:28 BMI result Body Mass Index 15.4 Tobacco/Smoking Status: Tobacco use Status Tobacco use date assessed 12/04/23 12/04/23 12:32 Patient Tobacco Use Status Former Tobacco user 12/04/23 12:32 Tobacco use type Cigarette 12/04/23 12:32 e-Cigarette/Vaping Use Never Used 12/04/23 12:32 Thrive Assessment: Date of Thrive Assessment Date Thrive assessed 12/04/23 12/04/23 12:32 Currently or been in a relationship where the following occur: I choose not to answer Const General: cooperative, comfortable and no acute distress Orientation/consciousness: patient oriented x3 HENMT Head: Yes normocephalic and Yes atraumatic Eyes General: appearance normal, both eyes and all related structures Pupils: Equal, round and reactive pupils present EOM: EOMs intact bilaterally Neck Neck: Yes supple and No lymphadenopathy Thyroid: Thyroid normal Lymphatic: no lymphadenopathy noted Resp Effort & Inspection: able to speak in complete sentences Auscultation: clear to auscultation bilaterally Cardio Heart sounds: S1 normal heart sound present and S2 normal heart sound present GI Palpation (GI): Soft to palpation and nontender Auscultation: normal bowel sounds General: Yes no CVA tenderness Back/Spine/Pelvis Back: no CVA tenderness Skin General skin exam: elasticity normal and turgor normal Neuro General: patient oriented x3 and gait normal Cranial nerves: Yes Equal, round and reactive pupils present Speech: No Abnormal speech present Sensory Exam: No Sensory deficit (Neuro) Coordination: Romberg test negative Extrem General: Yes normal exam except as noted and No edema Assessment and Plan Assessment & Plan (1) Encounter for general adult medical examination with abnormal findings: Code(s): Z00.01 - Encounter for general adult medical examination with abnormal findings (2) Osteoporosis: Code(s): M81.0 - Age-related osteoporosis without current pathological fracture Qualifiers: Osteoporosis type: age-related Presence of current pathological fracture: without current pathological fracture Qualified Code(s): M81.0 - Age-related osteoporosis without current pathological fracture (3) Diabetes type 2, controlled: Code(s): E11.9 - Type 2 diabetes mellitus without complications Qualifiers: Diabetes mellitus complication status: with other specified complication Diabetes mellitus superintendent container terminal insulin use: without superintendent container terminal use Qualified Code(s): E11.69 - Type 2 diabetes mellitus with other specified complication (4) COPD, severe: Code(s): J44.9 - Chronic obstructive pulmonary disease, unspecified (5) LFT elevation: Code(s): R79.89 - Other specified abnormal findings of blood chemistry (6) Anxiety, generalized: Code(s): F41.1 - Generalized anxiety disorder (7) Difficulty sleeping: Code(s): G47.9 - Sleep disorder, unspecified Plan Patient is a 73-year-old female came in today for physical examination Mammogram was just done Bone density was last year which showed osteoporosis, patient does not want to see a specialist or take any medications She has taken Fosamax for years and then stopped Patient is oxygen dependent COPD, get short of breath without oxygen She is being managed by Dr. Valderrama hydramatic specialist [facility] She is able to speak in full sentences without oxygen but seems to be short of breath Blood pressure is stable patient is on amlodipine 2.5 mg She also did Lexapro for anxiety mirtazapine 22.5 to sleep at night Continue simvastatin 20 mg daily Labs were done this month reviewed Patient does not want to have anymore colonoscopies She failed tandem walk today Breast exam declined by the patient Patient is diet-controlled diabetic Follow-up 4 months Medications: Refilled cholecalciferol (vitamin D3) 25 mcg PO DAILY 90 caps 3RF escitalopram oxalate (Lexapro) 10 mg PO DAILY 90 tabs 0RF 90 days F41.1 - Generalized anxiety disorder mirtazapine 22.5 mg (1.5 x 15 mg) PO BEDTIME 135 tabs 1RF 90 days simvastatin 20 mg PO DAILY 90 tabs 1RF 90 days E78.9 - Disorder of lipoprotein metabolism, unspecified amlodipine 2.5 mg PO DAILY 90 tabs 1RF 90 days Coding Level of Care Code Est Pt Level 3 (89265) Est Pt Prev Care >65y(44177) Diagnoses Encounter for general adult medical examination with abnormal findings Z00.01 Age-related osteoporosis without current pathological fracture M81.0 Osteoporosis type: age-related Presence of current pathological fracture: without current pathological fracture Controlled type 2 diabetes mellitus with other specified complication, without long-term current use of insulin E11.69 Diabetes mellitus complication status: with other specified complication Diabetes mellitus superintendent container terminal insulin use: without superintendent container terminal use COPD, severe J44.9 LFT elevation R79.89 Anxiety, generalized F41.1 Difficulty sleeping G47.9
== END 2023-12-04 12:50 | disposition home or self-care (01) ==
PROVIDERS: PCP Internal Medicine; Visit Provider Internal Medicine
DX: Z00.00 Encounter for general adult medical examination without abnormal findings (principal); M81.0 Age-related osteoporosis without current pathological fracture; J44.9 Chronic obstructive pulmonary disease, unspecified; E11.69 Type 2 diabetes mellitus with other specified complication; R79.89 Other specified abnormal findings of blood chemistry; F41.1 Generalized anxiety disorder; G47.9 Sleep disorder, unspecified

== ENCOUNTER → 2023-12-04 12:25 | Outpatient (BNVA) | payer MEDICARE, MEDICAID, SELFPAY | PROVIDERS: PCP Internal Medicine; Visit Provider Internal Medicine ==

== ENCOUNTER 2024-01-20 11:04 | Outpatient (AMB) | payer MEDICARE, MEDICAID, SELFPAY ==
[2024-01-20 11:10] VITALS: BP 122/60; PULSE 101; O2SAT 95; BMI 15.3
--- NOTE | 2024-01-20 11:10 | MHC.OFFVIS ---
Vital Signs 01/20/24 11:10 Height 5 ft Weight 78 lb 4.226 oz BMI 15.3 BP 122/60 Blood Pressure Location Rt brachial Position Sitting Pulse 101 H Pulse Source Pulse Oximeter Pulse Oximetry (%) 95 Oxygen Delivery Method Nasal Cannula Oxygen Flow Rate 2 Intake Visit Reasons: COPD Solar Installation Technician Required: No Research Contracts Supervisor: Research Contracts Supervisor offered & declined Accompanied by: Self / Same As Patient Allergies Sulfamethoxazole-TMP DS Allergy (Intermediate, Uncoded 01/20/24 11:36) tongue swelling Medication List - Last Reconciled 01/20/24 by Lyly Valderrama MD albuterol sulfate 90 mcg/actuation 2 puffs inhalation Q4-6H PRN 90 days amlodipine 2.5 mg PO DAILY 90 days Anoro Ellipta 62.5-25 mcg/actuation (umeclidinium-vilanterol) 1 ea PO DAILY 90 days NS ascorbate calcium (vitamin C) 500 mg PO DAILY aspirin (Adult Low Dose Aspirin) 81 mg PO DAILY cholecalciferol (vitamin D3) 25 mcg PO DAILY escitalopram oxalate (Lexapro) 10 mg PO DAILY 90 days fluticasone propionate 50 mcg/actuation (Flonase Allergy Relief) 1 spray intranasal DAILY PRN 90 days mirtazapine 22.5 mg (1.5 x 15 mg) PO BEDTIME 90 days simvastatin 20 mg PO DAILY 90 days vitamin B complex (B Complex-Vitamin B12 tablet) 1 tab PO DAILY vitamin E 200 units PO BID Do you need a note to return to daycare/school/sports/work: No HPI HPI COPD: Details: Ashley is 73 years old very pleasant female, with chronic obstructive pulmonary disease and also chronic mild allergic rhinitis. She uses mostly Anoro Ellipta once a day and albuterol just as needed. She is on O2 2 L/minute at night and p.r.n. during the daytime if she goes out to the store or to an office . In the last 6 months has been very stable without any acute exacerbation. She remains active in the house, has been doing gardening during the summer months , and does go to the stores for shopping etc. PENDING SALE TO [facility] Medical History Respiratory failure with hypoxia Respiratory failure with hypoxia Stroke COPD (chronic obstructive pulmonary disease) Surgical History No pertinent past surgical history Social History Housing: House Alcohol intake: current Alcohol intake frequency: holidays/special occasions only Patient Tobacco Use Status: Former Tobacco user Tobacco use type: Cigarette e-Cigarette/Vaping Use: Never Used service: No Current occupational status: retired Cognitive needs: No Hearing needs: No Vision needs: Yes Review of Systems Const All systems reviewed & are unremarkable except as noted in HPI and below Eyes Reports no additional complaints ENT Reports nasal congestion (MILD INTERMITTENT) Card Denies chest pain, Denies irregular heart rhythm and Denies leg edema Resp Reports as per HPI GI Reports no additional complaints and Reports other (APPETITE IS FAIR BUT SHE EATS IN SMALL AMOUNTS) Reports no additional complaints Musc Reports no additional complaints Skin/Breast Reports system reviewed and no additional complaints, except as documented Neuro Reports no additional complaints Psych Reports depression (CONTROLLED WITH MED) Physical Exam Vital Signs: Last Vital Signs Pulse 101 H 01/20/24 11:10 BP 122/60 01/20/24 11:10 Pulse Ox 95 01/20/24 11:10 Oxygen Delivery Method Nasal Cannula 01/20/24 11:10 Oxygen Flow Rate 2 01/20/24 11:10 BMI result Body Mass Index 15.3 Const General: comfortable, no acute distress, alert and awake Orientation/consciousness: patient oriented x3 HEENT Head: Yes normal to inspection General nose exam: No nasal polyps present and No nasal discharge present Face and sinus: Yes sinuses nontender Mouth: oropharynx normal Teeth and gingiva: poor dentition Throat: Yes posterior oropharynx normal Eyes General: appearance normal, both eyes and all related structures Neck Neck: Yes normal visual inspection, Yes no lymphadenopathy, Yes trachea midline and Yes no JVD Thyroid: Thyroid normal Chest Chest palpation & inspection: normal inspection of the chest, normal palpation of entire chest wall and no tenderness Resp Other: PERCUSSION NOTE IS RESONANT, BREATH SOUNDS ARE DISTANT WITH PROLONGED EXPIRATORY PHASE. NO WHEEZES OR RHONCHI OR CREPITATIONS ARE HEARD. Cardio Palpation: normal PMI Rate: regular rate Rhythm: regular rhythm Heart sounds: no gallops and no murmurs GI Palpation (GI): Soft to palpation, nontender, No hepatosplenomegaly present and no masses Auscultation: normal bowel sounds Back/Spine/Pelvis Thoracic/Lumbar Spine: thoracic and lumbar spine normal to inspection and thoraco-lumbar ROM limited Skin General skin exam: no rashes or lesions noted Neuro General: patient oriented x3 and no focal motor deficits Cranial nerves: Yes CN's II-XII intact bilaterally Extrem General: Yes normal to inspection, Yes no clubbing, cyanosis or edema and Yes no calf tenderness Psych Appearance: grossly normal and well kempt Speech and movement: Normal speech and movement present Assessment & Plan Assessment & Plan (1) COPD (chronic obstructive pulmonary disease): Comment: SHE HAS RATHER ADVANCED DEGREE OF CHRONIC OBSTRUCTIVE PULMONARY DISEASE. HOLDING FAIRLY STABLE AT THIS TIME AND LUCKILY SHE HAS HAD NO ACUTE EXACERBATION. Code(s): J44.9 - Chronic obstructive pulmonary disease, unspecified Category: Medical Plan: [place]: ANORO ELLIPTA 1 INHALATION DAILY. AND PROAIR 2 PUFFS Q 6 HOURS ONLY P.R.N. script renewed (2) Allergic rhinitis: Comment: MILD, MOSTLY DUE TO ALLERGY TO THE DOG, SHE TRIES TO STAY WAY FROM THE DOG MUCH POSSIBLE. Code(s): J30.9 - Allergic rhinitis, unspecified Category: Medical Qualifiers: Allergic rhinitis trigger: animal hair and dander Qualified Code(s): J30.81 - Allergic rhinitis due to animal (cat) (dog) hair and dander Plan: Flonase-50 1 spray in each nostril daily. May use OTC antihistaminics such as Zyrtec 5 mg once a day. (3) Respiratory failure with hypoxia: Comment: PATIENT HAS EXERCISE INDUCED HYPOXEMIA. SHE IS SUPPOSED TO USE O2 2 L/MINUTE WITH PORTABLE UNIT, BUT DOES NOT USE WHEN SHE GOES OUTDOORS BECAUSE THE PORTABLE CYLINDER IS TOO HEAVY. SHE DOES HAVE STATIONARY CONCENTRATOR AT HOME, USES O2 2 L/MINUTE AT NIGHT, AND P.R.N. DURING THE DAYTIME WHEN INSIDE THE HOUSE. Code(s): J96.91 - Respiratory failure, unspecified with hypoxia Category: Medical Plan: CONTINUE O2 2 L/MINUTE AT NIGHT AND P ARE IN WHEN GOING OUTDOORS, DURING THE DAYTIME Coding Level of Care Code Est Pt Level 3 (56934) Diagnoses COPD (chronic obstructive pulmonary disease) J44.9 Allergic rhinitis due to animal hair and dander J30.81 Allergic rhinitis trigger: animal hair and dander Respiratory failure with hypoxia J96.91
== END 2024-01-20 11:37 | disposition home or self-care (01) ==
LOC: HO.HPS 11:04
PROVIDERS: PCP Internal Medicine; Visit Provider Internal Medicine
DX: J44.9 Chronic obstructive pulmonary disease, unspecified (principal); J30.81 Allergic rhinitis due to animal (cat) (dog) hair and dander; J96.91 Respiratory failure, unspecified with hypoxia
CPT/HCPCS: 99213

== ENCOUNTER → 2024-01-20 11:04 | Outpatient (BNVA) | payer MEDICARE, MEDICAID, SELFPAY | PROVIDERS: PCP Internal Medicine; Visit Provider Internal Medicine | DX: J44.9 Chronic obstructive pulmonary disease, unspecified (principal); J30.9 Allergic rhinitis, unspecified; J96.91 Respiratory failure, unspecified with hypoxia | CPT/HCPCS: 99212 ==

== ENCOUNTER 2024-08-31 11:57 | Outpatient (AMB) | payer MEDICARE, MEDICAID, SELFPAY ==
[2024-08-31 12:04] VITALS: BP 128/70; PULSE 114; TEMP 37.1; O2SAT 94; BMI 14.9
--- NOTE | 2024-08-31 12:04 | MHC.PC.OV ---
Vital Signs 08/31/24 12:04 Height 5 ft Weight 76 lb 8 oz BMI 14.9 BP 128/70 Blood Pressure Location Lt brachial Position Sitting Pulse 114 H Pulse Source Pulse Oximeter Temp 98.8 F Temp Source Oral Pulse Oximetry (%) 94 Oxygen Delivery Method Nasal Cannula Oxygen Flow Rate 2 Intake Visit Reasons: Med review Allergies Sulfamethoxazole-TMP DS Allergy (Intermediate, Uncoded 01/20/24 11:36) tongue swelling Medication List - Last Reconciled 08/31/24 by Wilton Alfaro MD albuterol sulfate 90 mcg/actuation 2 puffs inhalation Q4-6H PRN 90 days amlodipine 2.5 mg PO DAILY 90 days Anoro Ellipta 62.5-25 mcg/actuation (umeclidinium-vilanterol) 1 ea PO DAILY 90 days NS ascorbate calcium (vitamin C) 500 mg PO DAILY aspirin (Adult Low Dose Aspirin) 81 mg PO DAILY cholecalciferol (vitamin D3) 25 mcg PO DAILY fluticasone propionate 50 mcg/actuation (Flonase Allergy Relief) 1 spray intranasal DAILY PRN 90 days mirtazapine 22.5 mg (1.5 x 15 mg) PO BEDTIME 90 days simvastatin 20 mg PO DAILY 90 days vitamin B complex (B Complex-Vitamin B12 tablet) 1 tab PO DAILY vitamin E 200 units PO BID Tobacco use date assessed: 12/04/23 Fall risk assessment: No Falls in past year Dental Screening Dental Screen Date: 07/07/23 Did you have a dental visit in the last 12 months?: No Did you have a dental problem in the last 6 months where you did not have access to dental care?: No Was dental information given to patient?: Patient has dentist HPI Med review HPI Details History - The patient is a 74-year-old female presenting for her regular f/u apt - The elevated liver enzymes were identified during the last medical consultation in November 2023. - The patient misses her follow-up visit since the last measurement of elevated liver enzymes in November 2023. - The patient is currently on simvastatin 20 mg, which may influence liver enzyme levels. - No specific symptoms related to liver complications have been reported. - Concern over the liver enzyme levels arises due to continued medication that affects liver function. Medical History: - Chronic Obstructive Pulmonary Disease (COPD), oxygen-dependent. - Anxiety and depression. - Hyperlipidemia. - HTN - insomina Medications: - Amlodipine 2.5 mg for hypertension. - Enoro/Ellipta for COPD. - Vitamin D supplements for presumed deficiency. - Flonase for allergies. - Mirtazapine for sleep. - Simvastatin 20 mg for hyperlipidemia. Social History: - Family-oriented with a son providing transportation and support. - Recent stress due to her son's hospitalization and recovery. Diagnostic Results: - Labs (November 2023): Elevated liver enzymes. Problem List - Elevated Liver Enzymes. - Hyperlipidemia. - Hypertension. - Chronic Obstructive Pulmonary Disease (COPD). - Anxiety and Depression. - insominia - Oxygen dependent Patient Instructions - Have blood drawn today to recheck liver enzyme levels. - Continue taking all prescribed medications as directed. - You already have a follow-up appointment scheduled for December 13 for further evaluation. Review of Systems - General: No fever no chills - Neurological: No headaches no dizziness - Ear nose throat: No sore throat no hearing difficulty no ear pain - Cardiovascular: No syncope, no chest pain, no palpitations - Gastrointestinal: No nausea vomiting or diarrhea - Endocrine: No polyuria polydipsia no heat intolerance - Genitourinary: No dysuria , no blood in urine Physical Exam - General: No acute distress , oxygen canula in nose and have Oxygen tank along - HEENT: No acute findings - Neck: Supple - Respiratory system: Able to talk in full sentences, no audible wheeze , mild SOB which is baseline for the patient - Cardiovascular: S1-S2 regular in rate and rhythm - Gastrointestinal: No pain - Extremities: No new findings - TERRITORY ACCOUNT REPRESENTATIVE: Alert awake oriented x3 motor sensory intact - Skin: Normal turgor [facility] Medical History Respiratory failure with hypoxia Respiratory failure with hypoxia Stroke COPD (chronic obstructive pulmonary disease) Surgical History No pertinent past surgical history Social History Housing: House Alcohol intake: current Alcohol intake frequency: holidays/special occasions only Patient Tobacco Use Status: Former Tobacco user Tobacco use type: Cigarette e-Cigarette/Vaping Use: Never Used service: No Current occupational status: retired Cognitive needs: No Hearing needs: No Vision needs: Yes Questionnaire Thrive Questionnaire Date Thrive assessed: 08/31/24 MAHAD-7 AMB Questionnaire MAHAD-7 Date MAAHD - 7 assessed: 12/04/23 Source: Developed by Drs. Maico Carpenter, Adelia Adan, Bladimir Lilly and colleagues, with an educational nasra from [employer]. Physical exam (Primary Care) Vital Signs: Last Vital Signs Temp 98.8 F 08/31/24 12:04 Pulse 114 H 08/31/24 12:04 BP 128/70 08/31/24 12:04 Pulse Ox 94 08/31/24 12:04 Oxygen Delivery Method Nasal Cannula 08/31/24 12:04 Oxygen Flow Rate 2 08/31/24 12:04 BMI result Body Mass Index 14.9 Tobacco/Smoking Status: Tobacco use Status Tobacco use date assessed 12/04/23 08/31/24 12:11 Patient Tobacco Use Status Former Tobacco user 08/31/24 12:11 Tobacco use type Cigarette 08/31/24 12:11 e-Cigarette/Vaping Use Never Used 08/31/24 12:11 Thrive Assessment: Date of Thrive Assessment Date Thrive assessed 08/31/24 08/31/24 12:11 Coding Level of Care Code Est Pt Level 4 (44109) Complex EM visit Add On G2211 Diagnoses LFT elevation R79.89 Anxiety, generalized F41.1 Lipid disorder E78.9 Controlled type 2 diabetes mellitus with other specified complication, without long-term current use of insulin E11.69 Diabetes mellitus mcfp insulin use: without mcfp use Diabetes mellitus complication status: with other specified complication Age-related osteoporosis without current pathological fracture M81.0 Osteoporosis type: age-related Presence of current pathological fracture: without current pathological fracture COPD, severe J44.9 Difficulty sleeping G47.9 Oxygen dependent Z99.81 Assessment & Plan Assessment & Plan (1) LFT elevation: Code(s): R79.89 - Other specified abnormal findings of blood chemistry Category: Medical (2) Anxiety, generalized: Code(s): F41.1 - Generalized anxiety disorder Category: Medical (3) Lipid disorder: Code(s): E78.9 - Disorder of lipoprotein metabolism, unspecified Category: Medical (4) Diabetes type 2, controlled: Code(s): E11.9 - Type 2 diabetes mellitus without complications Category: Medical Qualifiers: Diabetes mellitus local company intermodal truck driver insulin use: without local company intermodal truck driver use Diabetes mellitus complication status: with other specified complication Qualified Code(s): E11.69 - Type 2 diabetes mellitus with other specified complication (5) Osteoporosis: Code(s): M81.0 - Age-related osteoporosis without current pathological fracture Category: Medical Qualifiers: Osteoporosis type: age-related Presence of current pathological fracture: without current pathological fracture Qualified Code(s): M81.0 - Age-related osteoporosis without current pathological fracture (6) COPD, severe: Comment: RELATIVELY SEVERE CHRONIC OBSTRUCTIVE PULMONARY DISEASE BUT IT IS STAYING QUITE STABLE AT THIS TIME. Code(s): J44.9 - Chronic obstructive pulmonary disease, unspecified Category: Medical (7) Difficulty sleeping: Code(s): G47.9 - Sleep disorder, unspecified Category: Medical (8) Oxygen dependent: Code(s): Z99.81 - Dependence on supplemental oxygen Category: Medical Plan History - The patient is a 74-year-old female presenting for her regular f/u apt - The elevated liver enzymes were identified during the last medical consultation in November 2023. - The patient misses her follow-up visit since the last measurement of elevated liver enzymes in November 2023. - The patient is currently on simvastatin 20 mg, which may influence liver enzyme levels. - No specific symptoms related to liver complications have been reported. - Concern over the liver enzyme levels arises due to continued medication that affects liver function. Medical History: - Chronic Obstructive Pulmonary Disease (COPD), oxygen-dependent. - Anxiety and depression. - Hyperlipidemia. - HTN - insomina - DM diet controlled Medications: - Amlodipine 2.5 mg for hypertension. - Enoro/Ellipta for COPD. - Vitamin D supplements for presumed deficiency. - Flonase for allergies. - Mirtazapine for sleep. - Simvastatin 20 mg for hyperlipidemia. Social History: - Family-oriented with a son providing transportation and support. - Recent stress due to her son's hospitalization and recovery. Diagnostic Results: - Labs (November 2023): Elevated liver enzymes. Problem List - Elevated Liver Enzymes. - Hyperlipidemia. - Hypertension. - Chronic Obstructive Pulmonary Disease (COPD). - Anxiety and Depression. - insominia - Oxygen dependent Patient Instructions - Have blood drawn today to recheck liver enzyme levels. - Continue taking all prescribed medications as directed. - You already have a follow-up appointment scheduled for December 13 for further evaluation. Orders: Orders Comprehensive Met. Panel Today R79.89 - Other specified abnormal findings of blood chemistry Complete Blood Count Auto Diff Today R79.89 - Other specified abnormal findings of blood chemistry Medications: Refilled escitalopram oxalate (Lexapro) 10 mg PO DAILY 90 tabs 0RF 90 days F41.1 - Generalized anxiety disorder
--- OUTSIDE RECORDS SUMMARY | 2024-08-31 13:55 | XMS_ITS | Encounter Summary ---
Author Organization [employer] [facility] Address [address] [place] [address] Care Team Providers Care Budget Record Clerk Name Role Phone Unavailable Primary Care Provider Unavailabl e Encounter Details Date Type Department Care Team (Latest Contact Info) Description 06/17/2021 Abstract [facility] CONVERSIONS Dental, Provider, DDS Social History Tobacco Use Types Packs/Day Years Used Date Smoking Tobacco: Never Assessed Comments Unknown Sex and Gender Information Value Date Recorded Sex Assigned at Female 01/13/2022 10:21 AM EDT Legal Sex Female 10:21 AM EDT Gender Identity Choose not to disclose 2 10:21 AM EDT Sexual Orientation Choose not to disclose 2021 10:21 AM EDT documented as of this encounter Plan of Treatment Not on file documented as of this encounter Visit Diagnoses Not on filedocumented in this encounter
== END 2024-08-31 12:18 | disposition home or self-care (01) ==
LOC: HO.HMCC 11:58
PROVIDERS: PCP Internal Medicine; Visit Provider Internal Medicine
DX: E11.69 Type 2 diabetes mellitus with other specified complication (principal); J44.9 Chronic obstructive pulmonary disease, unspecified; R79.89 Other specified abnormal findings of blood chemistry; F41.1 Generalized anxiety disorder; E78.9 Disorder of lipoprotein metabolism, unspecified; M81.0 Age-related osteoporosis without current pathological fracture; G47.9 Sleep disorder, unspecified; Z99.81 Dependence on supplemental oxygen

== ENCOUNTER 2024-08-31 12:19 | Outpatient (REF) | payer MEDICARE, MEDICAID, SELFPAY ==
[2024-08-31 13:23] LABS: MANUAL DIFF FLAG NO
[2024-08-31 13:26] LABS: Basophils Absolute Auto 0.1 X10*3/uL (0.0-0.2); Basophils Percent Auto 0.5 % (0-2); Eosinophils Absolute Auto 0.1 X10*3/uL (0.0-0.4); Hematocrit 42.1 % (37.0-47.0); Hemoglobin 13.7 g/dl (12.0-16.0); Imm Gran Abs Auto 0.03 X10*3/uL (0.00-0.03); Imm Gran Pct Auto 0.3 % (0.0-0.4); Lymphocytes Absolute Auto 1.8 X10*3/uL (1.2-4.9); Lymphocytes Percent Auto 19.9 % (20-40); Mean Corpuscular HGB Conc 32.5 g/dl (31.0-35.0); Mean Corpuscular Hemoglobin 31.5 pg (27.0-33.0); Mean Corpuscular Volume 96.8 fL (80.0-98.0); Mean Platelet Volume 11.1 fL (9.4-12.3); Monocytes Absolute Auto 0.8 X10*3/uL (0.1-1.2); Monocytes Percent Auto 9.1 % (2-11); Neutrophils Absolute Auto 6.4 x10*3/uL (2.0-8.3); Neutrophils Percent Auto 69.2 % (45-73); Platelet Count 256 X10*3/uL (160-400); Red Blood Count 4.35 X10*6/uL (4.20-5.50); Red Cell Distribution Width 12.6 % (11.0-16.0); White Blood Count 9.3 X10*3/uL (4.8-10.8)
[2024-08-31 13:43] LABS: Alanine Aminotransferase 34 U/L (0-31); Albumin Level 4.7 g/dL (3.5-5.0); Alkaline Phosphatase 83 U/L (39-117); Anion Gap 13 (12-20); Aspartate Amino Transferase 46 U/L (5-31); Bilirubin Total 0.6 mg/dL (0.0-1.0); Blood Urea Nitrogen 15 mg/dL (9-16); Calcium 9.7 mg/dL (8.4-10.2); Carbon Dioxide 25 mmol/L (22-29); Chloride 107 mmol/L (96-108); Estimated Glomerular Filt Rate > 60; Glucose Random 118 mg/dL (60-115); Potassium 4.2 mmol/L (3.3-5.1); Sodium 141 mmol/L (135-145); Total Protein 7.4 g/dL (6.5-8.0)
== END 2024-08-31 12:20 | disposition home or self-care (01) ==
LOC: HO.HMGCLDS 12:19
PROVIDERS: PCP Internal Medicine; Visit Provider Internal Medicine
DX: R79.89 Other specified abnormal findings of blood chemistry (principal); F41.1 Generalized anxiety disorder; E78.9 Disorder of lipoprotein metabolism, unspecified; E11.69 Type 2 diabetes mellitus with other specified complication; J44.9 Chronic obstructive pulmonary disease, unspecified; G47.9 Sleep disorder, unspecified; Z79.899 Other long term (current) drug therapy; Z99.81 Dependence on supplemental oxygen
CPT/HCPCS: 36415; 80053; 85025; 99212

== ENCOUNTER 2024-09-01 11:23 | Outpatient (AMB) | payer MEDICARE, MEDICAID, SELFPAY ==
--- NOTE | 2024-09-01 11:35 | MHC.OFFVIS ---
Vital Signs 09/01/24 11:37 Height 5 ft Weight 77 lb 2.589 oz BMI 15.1 BP 158/82 H Blood Pressure Location Lt brachial Position Sitting Pulse 57 Pulse Source Pulse Oximeter Pulse Oximetry (%) 95 Oxygen Delivery Method Nasal Cannula Oxygen Flow Rate 2 Intake Visit Reasons: COPD Intake Note: pt is here for follow up and states she is doing well with the breathing Desktop Manager Required: No Allergies Sulfamethoxazole-TMP DS Allergy (Intermediate, Uncoded 09/01/24 11:45) tongue swelling Medication List - Last Reconciled 09/01/24 by Lyly Valderrama MD albuterol sulfate 90 mcg/actuation 2 puffs inhalation Q4-6H PRN 90 days amlodipine 2.5 mg PO DAILY 90 days Anoro Ellipta 62.5-25 mcg/actuation (umeclidinium-vilanterol) 1 ea PO DAILY 90 days NS ascorbate calcium (vitamin C) 500 mg PO DAILY aspirin (Adult Low Dose Aspirin) 81 mg PO DAILY cholecalciferol (vitamin D3) 25 mcg PO DAILY escitalopram oxalate (Lexapro) 10 mg PO DAILY 90 days fluticasone propionate 50 mcg/actuation (Flonase Allergy Relief) 1 spray intranasal DAILY PRN 90 days mirtazapine 22.5 mg (1.5 x 15 mg) PO BEDTIME 90 days simvastatin 20 mg PO DAILY 90 days vitamin B complex (B Complex-Vitamin B12 tablet) 1 tab PO DAILY vitamin E 200 units PO BID Do you need a note to return to daycare/school/sports/work: No HPI HPI COPD: Details: THIS 74 YEARS OLD FEMALE WITH ADVANCED CHRONIC OBSTRUCTIVE PULMONARY DISEASE, PAST HISTORY OF SMOKING, IS BEING TREATED WITH ANORO ELLIPTA 1 INHALATION DAILY. AND ALBUTEROL HFA P.R.N. WHICH SHE HARDLY NEEDS TO USE. SHE DOES NOT SMOKE . SHE HAD CHRONIC ANXIETY WITH DEPRESSION AND MALNUTRITION. SHE IS BEING TREATED WITH LEXAPRO 10 MG DAILY AND ALSO MIRTAZAPINE 22.5 MG AT BEDTIME. HER APPETITE IS FAIR SHE EATS REGULARLY 3 TIMES A DAY AND HAS BEEN MAINTAINING HER WEIGHT. DOES NOT SMOKE ANYMORE. SHE USES O2 2 L/MINUTE AT NIGHT AND ONLY P.R.N. DURING THE DAYTIME. SHE DOES USE THE PORTABLE UNIT WHEN SHE COMES OUTDOORS. [facility] Medical History Respiratory failure with hypoxia Respiratory failure with hypoxia Stroke COPD (chronic obstructive pulmonary disease) Surgical History No pertinent past surgical history Social History Housing: House Alcohol intake: current Alcohol intake frequency: holidays/special occasions only Patient Tobacco Use Status: Former Tobacco user Tobacco use type: Cigarette e-Cigarette/Vaping Use: Never Used service: No Current occupational status: retired Cognitive needs: No Hearing needs: No Vision needs: Yes Review of Systems Const All systems reviewed & are unremarkable except as noted in HPI and below Eyes Reports no additional complaints ENT Reports nasal congestion (MILD INTERMITTENT) Card Denies chest pain, Denies irregular heart rhythm and Denies leg edema Resp Reports as per HPI GI Reports no additional complaints and Reports other (APPETITE IS FAIR BUT SHE EATS IN SMALL AMOUNTS) Reports no additional complaints Musc Reports no additional complaints Skin/Breast Reports system reviewed and no additional complaints, except as documented Neuro Reports no additional complaints Psych Reports depression (CONTROLLED WITH MED) Physical Exam Vital Signs: Last Vital Signs Pulse 57 09/01/24 11:37 BP 158/82 H 09/01/24 11:37 Pulse Ox 95 09/01/24 11:37 Oxygen Delivery Method Nasal Cannula 09/01/24 11:37 Oxygen Flow Rate 2 09/01/24 11:37 BMI result Body Mass Index 15.1 Const General: comfortable, no acute distress, alert and awake Orientation/consciousness: patient oriented x3 HEENT Head: Yes normal to inspection General nose exam: No nasal polyps present and No nasal discharge present Face and sinus: Yes sinuses nontender Mouth: oropharynx normal Teeth and gingiva: poor dentition Throat: Yes posterior oropharynx normal Eyes General: appearance normal, both eyes and all related structures Neck Neck: Yes normal visual inspection, Yes no lymphadenopathy, Yes trachea midline and Yes no JVD Thyroid: Thyroid normal Chest Chest palpation & inspection: normal inspection of the chest, normal palpation of entire chest wall and no tenderness Resp Other: PERCUSSION NOTE IS RESONANT, BREATH SOUNDS ARE DISTANT WITH PROLONGED EXPIRATORY PHASE. NO WHEEZES OR RHONCHI OR CREPITATIONS ARE HEARD. Cardio Palpation: normal PMI Rate: regular rate Rhythm: regular rhythm Heart sounds: no gallops and no murmurs GI Palpation (GI): Soft to palpation, nontender, No hepatosplenomegaly present and no masses Auscultation: normal bowel sounds Back/Spine/Pelvis Thoracic/Lumbar Spine: thoracic and lumbar spine normal to inspection and thoraco-lumbar ROM limited Skin General skin exam: no rashes or lesions noted Neuro General: patient oriented x3 and no focal motor deficits Cranial nerves: Yes CN's II-XII intact bilaterally Extrem General: Yes normal to inspection, Yes no clubbing, cyanosis or edema and Yes no calf tenderness Psych Appearance: grossly normal and well kempt Speech and movement: Normal speech and movement present Assessment & Plan Assessment & Plan (1) COPD (chronic obstructive pulmonary disease): Comment: SHE HAS RATHER ADVANCED DEGREE OF CHRONIC OBSTRUCTIVE PULMONARY DISEASE. HOLDING FAIRLY STABLE AT THIS TIME AND LUCKILY SHE HAS HAD NO ACUTE EXACERBATION. Code(s): J44.9 - Chronic obstructive pulmonary disease, unspecified Category: Medical Plan: ADVISED TO CONTINUE USING ANORO ELLIPTA 1 INHALATION DAILY AND USE ALBUTEROL HFA 2 PUFFS Q 6 HOURS ONLY P.R.N. (2) Respiratory failure with hypoxia: Comment: PATIENT DOES HAVE CHRONIC HYPOXEMIA DUE TO HER ADVANCED COPD, SHE IS SUPPOSED ON O2 2 L/MINUTE, WITH STATIONARY CONCENTRATOR AND IS ADVISED TO USE AT NIGHT WELL . P.R.N. DURING THE DAYTIME SHE ALSO NEEDS O2 2 L/MINUTE WHEN GOING OUTDOORS OR DOING ANT PHYSICAL ACTIVITY. SHE DOES HAVE A PORTABLE CYLINDER WHICH SHE CAN TAKE ALONG WHEN SHE GOES OUTDOORS. Code(s): J96.91 - Respiratory failure, unspecified with hypoxia Category: Medical Plan: CONTINUE USING O2 2 L/MINUTE AT NIGHT, 2 L/MINUTE P.R.N. DURING THE DAYTIME, WHILE AT HOME, AND DO TAKE THE PORTABLE UNIT ALONG WITH WHEN GOING OUTDOORS Coding Level of Care Code Est Pt Level 3 (59360) Diagnoses COPD (chronic obstructive pulmonary disease) J44.9 Respiratory failure with hypoxia J96.91
[2024-09-01 11:37] VITALS: BP 158/82; PULSE 57; O2SAT 95; BMI 15.1
--- OUTSIDE RECORDS SUMMARY | 2024-09-01 12:56 | XMS_ITS | Encounter Summary ---
Author Organization [employer] [facility] Address [address] [place] [address] Care Team Providers Care Engineering Group Manager Name Role Phone Unavailable Primary Care Provider Unavailabl e Encounter Details Date Type Department Care Team (Latest Contact Info) Description 06/17/2021 Abstract [facility] CONVERSIONS Dental, Provider, DDS Social History Tobacco [...]
== END 2024-09-01 11:51 | disposition home or self-care (01) ==
PROVIDERS: PCP Internal Medicine; Visit Provider Internal Medicine
DX: J44.9 Chronic obstructive pulmonary disease, unspecified (principal); J96.91 Respiratory failure, unspecified with hypoxia
CPT/HCPCS: 99213

== ENCOUNTER → 2024-09-01 11:23 | Outpatient (BNVA) | payer MEDICARE, MEDICAID, SELFPAY | PROVIDERS: PCP Internal Medicine; Visit Provider Internal Medicine | DX: J44.9 Chronic obstructive pulmonary disease, unspecified (principal); J96.91 Respiratory failure, unspecified with hypoxia; Z87.891 Personal history of nicotine dependence; Z99.81 Dependence on supplemental oxygen | CPT/HCPCS: 99212 ==

== ENCOUNTER 2024-11-22 10:48 | Outpatient (REF) | payer MEDICARE, MEDICAID, SELFPAY ==
--- OUTSIDE RECORDS SUMMARY | 2024-11-22 13:01 | XMS_ITS | Encounter Summary ---
Author Organization [employer] [facility] Address [address] [place] [address] Care Team Providers Care Slipman Name Role Phone Unavailable Primary Care Provider Unavailabl e Encounter Details Date Type Department Care Team (Latest Contact Info) Description 06/17/2021 Abstract [facility] CONVERSIONS Dental, Provider, DDS Social History Tobacco [...]
--- OUTSIDE RECORDS SUMMARY | 2024-11-22 13:01 | XMS_ITS | Clinical Summary ---
Author Organization [employer] [facility] Address [address] [place] [address] [address] [place] [address] Care Team Providers Care Yard Inspector Name Role Phone Unavailable Primary Care Provider Unavailabl e Social History Tobacco Use Types Packs/Day Years Used Date Smoking Tobacco: Never Assessed Comments Unknown Sex and Gender Information Value Date Recorded Sex Assigned at Female 01/13/2022 10:21 AM EDT Legal Sex Female 10:21 AM EDT Gender Identity Choose not to disclose 10:21 AM EDT Sexual Orientation Choose not to disclose 2021 10:21 AM EDT Plan of Treatment Health Maintenance Due Date Last Done Comments CT Colonography 1951 Colonoscopy 1951 Colorectal Cancer Screening 1951 Depression Screening 1951 FIT DNA/Cologuard 1951 FIT 1951 FOBT 1951 Sigmoidoscopy 1951 Alcohol/Substance Use Screening 1963 Tobacco Screening 1963 Mammogram 1991 Zoster Vaccines (1 of 2) 2001 Pneumococcal Vaccine: 50+ Years (2 of 2 - PCV) 04/03/2018 04/03/2017 DTaP/Tdap/Td Vaccines (2 - Td or Tdap) 08/03/2018 08/03/2008 COVID-19 Vaccine ( season) 2024 02/07/2022, 02/08/2021, 06/01/2020, Additional history exists Influenza Vaccine (#1) 2024 , 12/28/2019, 02/07/2019, Additional history exists RSV Patients and Patients Aged 60 years or older (1 - 1-dose 75+ series) 2026 Hepatitis B Vaccines Completed 08/21/1998, 04/02/1998, 02/22/1998 HIB Vaccines Aged Out No longer eligi ble based on patient's age to complete this topic HPV Vaccines Aged Out No longer eligi ble based on patient's age to complete this topic Hepatitis A Vaccines Aged Out No long er eligible based on patient's age to complete this topic IPV Vaccines Aged Out No longer eligi ble based on patient's age to complete this topic Meningococcal B Vaccine Aged Out No l onger eligible based on patient's age to complete this topic Meningococcal Vaccine Aged Out No cesar yoshi eligible based on patient's age to complete this topic RSV under 20 months Aged Out No longe r eligible based on patient's age to complete this topic Rotavirus Vaccines Aged Out No longer eligible based on patient's age to complete this topic
== END 2024-11-22 10:49 | disposition home or self-care (01) ==
LOC: HO.MAMMO 10:48
PROVIDERS: Visit Provider Internal Medicine
DX: Z12.31 Encounter for screening mammogram for malignant neoplasm of breast (principal)
CPT/HCPCS: 77063; 77067

== ENCOUNTER → 2024-11-22 11:15 | Outpatient (BNV) | payer MEDICARE, MEDICAID, SELFPAY | PROVIDERS: Visit Provider Internal Medicine | DX: Z12.31 Encounter for screening mammogram for malignant neoplasm of breast (principal) | CPT/HCPCS: 77063; 77067 ==

== ENCOUNTER 2024-12-13 12:26 | Outpatient (AMB) | payer MEDICARE, MEDICAID, SELFPAY ==
--- NOTE | 2024-12-13 12:28 | A.OFFPC_ITS ---
Vital Signs 12/13/24 12:29 Height 5 ft Weight 77 lb BMI 15.0 BP 142/74 H Blood Pressure Location Lt brachial Position Sitting Pulse 104 H Pulse Source Pulse Oximeter Pulse Oximetry (%) 93 Oxygen Delivery Method Room Air Intake Visit Reasons: Annual visit - see comments Allergies Sulfamethoxazole-TMP DS Allergy (Intermediate, Uncoded 12/13/24 12:29) tongue swelling Medication List - Last Reconciled 12/13/24 by Wilton Alfaro MD albuterol sulfate 90 mcg/actuation (Ventolin HFA) 2 puffs inhalation Q4-6H PRN 90 days amlodipine 2.5 mg PO DAILY 90 days Anoro Ellipta 62.5-25 mcg/actuation (umeclidinium-vilanterol) 1 ea PO DAILY 90 days NS ascorbate calcium (vitamin C) 500 mg PO DAILY aspirin (Adult Low Dose Aspirin) 81 mg PO DAILY cholecalciferol (vitamin D3) 25 mcg PO DAILY escitalopram oxalate (Lexapro) 10 mg PO DAILY 90 days fluticasone propionate 50 mcg/actuation (Flonase Allergy Relief) 1 spray intranasal DAILY PRN 90 days mirtazapine 22.5 mg (1.5 x 15 mg) PO BEDTIME 90 days simvastatin 20 mg PO DAILY 90 days vitamin B complex (B Complex-Vitamin B12 tablet) 1 tab PO DAILY vitamin E 200 units PO BID Tobacco use date assessed: 12/13/24 Fall risk assessment: No Falls in past year Last assessed Fall Risk: 12/13/24 Dental Screening Dental Screen Date: 12/13/24 Did you have a dental visit in the last 12 months?: Yes Did you have a dental problem in the last 6 months where you did not have access to dental care?: No Was dental information given to patient?: Patient has dentist HPI Annual visit - see comments HPI Details History of Present Illness The patient is a 74-year-old female presenting for a PE Essential Hypertension: - Reports blood pressure measured at [facility] is typically 114 systolic - In-clinic blood pressure recorded as . Elevated Liver Enzymes: - History of persistent slightly elevate d liver enzymes. - Enzymes stable according to last blood test done in August. Vitamin D Insufficiency: - Taking vitamin D regularly. Anxiety and Depression: - Currently managed with Lexapro and Eduardo tazapine. - Denies current anxiety or depression s ymptoms. Hyperlipidemia: - Managed with Simvastatin. - due for labs Oxygen dependent sever COPD, managed by operating systems specialist Medical History: - Essential Hypertension - Anxiety - Depression - Hyperlipidemia - COPD Oxygen dep Social History: - Brought to the appointment by her son. - Denies issues with self-care; reports capability of managing daily activities. Health Maintenance - Recent mammogram normal. - Due for flu and COVID vaccines. - Requires tetanus vaccine, had last one in 2008. - Due for blood tests at next visit in f our months. Medications - Lexapro for anxiety - Flonase nasal spray for allergies - Mirtazapine for depression - Simvastatin for hyperlipidemia - Vitamin D for insufficiency Patient Instructions - Continue all current medications as pr escribed. - Obtain flu and COVID vaccines at [facility]. - Receive tetanus vaccine today - No need for fasting before next blood test prior to next visit. - Return for next visit in four months f or follow-up. Review of Systems - General: No fever no chills - Neurological: No headaches no dizzin ess - Ear nose throat: No sore throat no hearing difficulty no ear pain - Cardiovascular: No syncope, no chest pain, no palpitations - Gastrointestinal: No nausea vomiting or diarrhea - Endocrine: No polyuria polydipsia no heat intolerance - Genitourinary: No dysuria - Skin: No new complaints Physical Exam General: Cooperative, healthy appearing, comfortable, in mild respiratory distress which is baseline for the patient nasal cannula in Orientation: Patient oriented x3 Head: Normal to inspection Ears: Within normal limit visually Nose: Normal external nose present Face and sinus: Normal facial exam Eyes: Appearance normal, extraocular movement intact pupils reactive Neck: Normal visual inspection and supple Respiratory: Normal respiratory effort and able to speak in complete sentences. Air entry limited bilateral Cardiovascular: S1 and S2 RRR Breast exam declined GI: Normal to inspection. Soft to palpation and nontender Skin: Turgor normal, no acute findings Neuro: Patient oriented x3, motor intact, balance off Extremities: Normal to inspection . [facility] Medical History Respiratory failure with hypoxia Respiratory failure with hypoxia Stroke COPD (chronic obstructive pulmonary disease) Surgical History No pertinent past surgical history Social History Housing: House Alcohol intake: current Alcohol intake frequency: holidays/special occasions only Patient Tobacco Use Status: Former Tobacco user Tobacco use type: Cigarette e-Cigarette/Vaping Use: Never Used service: No Current occupational status: retired Cognitive needs: No Hearing needs: No Vision needs: Yes Questionnaire PHQ-9 Over the last 2 weeks, how often have you been bothered by any of the following problems? 1. Little interest or pleasure in doing things: not at all 2. Feeling down, depressed, or hopeless: not at all 3. Trouble falling or staying asleep, or sleeping too much: not at all 4. Feeling tired or having little energy: not at all 5. Poor appetite or overeating: not at all 6. Feeling bad about yourself - or that you are a failure or have let yourself or your family down: not at all 7. Trouble concentrating on things, such as reading the newspaper or watching television: not at all 8. Moving or speaking so slowly that other people could have noticed. Or the opposite - being so fidgety or restless that you have been moving around a lot more than usual: not at all 9. Thoughts that you would be better off or of hurting yourself in some way: not at all Total score: 0 Depression Screening Interpretation: Negative Depression Screening Done: Yes 25083 - PHQ-9 Billing: Yes Source: Developed by Drs. Maico Carpenter, Adelia Adan, Bladimir Lilly and colleagues, with an educational nasra from [employer]. Thrive Questionnaire Date Thrive assessed: 12/13/24 I am a: Patient What is your living situation today?: I have a steady place to live Within the past 12 months, did the food you bought not last and you didn't have the money to get more?: Never true Within the past 12 months, did you worry whether your food would run out before you got money to buy more?: Never true Do you have trouble paying for medicines?: No Do you have trouble getting transportation to medical appointments?: Yes Do you have trouble paying your heating and electricity bill?: Yes Do you have trouble taking care of your child, family member or friend?: No Do you have trouble with day-to-day activities such as bathing, preparing meals, shopping, managing finances, etc.?: No Are you interested in more education?: No Please select the resources that you would like help with: None Currently or been in a relationship where the following occur: I choose not to answer THRIVE Score: 2 AUDIT C Alcohol Use Questionnaire (AUDIT-C) 1. How often do you have a drink containing alcohol?: Monthly or less 2. How many drinks containing alcohol do you have on a typical day when you are drinking?: 1 or 2 3. How often do you have six or more drinks on one occasion?: Never Total Score: 1 Score Reviewed/Action Taken: Yes MAHAD-7 AMB Questionnaire MAHAD-7 Date MAHAD - 7 assessed: 12/13/24 Feeling nervous, anxious, or on edge: 0 = Not at all Not being able to stop or control worryin = Not at all Worrying too much about different things: 0 = Not at all Trouble relaxin = Not at all Being so restless that it is hard to sit still: 0 = Not at all Becoming easily annoyed or irritable: 0 = Not at all Feeling afraid as if something awful might happen: 0 = Not at all Total MAHAD-7 score (0-4 normal; 5-9 mild; 10-14 moderate; 15-21 severe): 0 Source: Developed by Drs. Maico Carpenter, Adelia Adan, Bladimir Lilly and colleagues, with an educational nasra from [employer]. MAHAD-7 Assessment Billing MAHAD-7 Assessment Tool: MAHAD-7 Assessment 35053 Physical exam (Primary Care) Vital Signs: Last Vital Signs Pulse 104 H 12/13/24 12:29 BP 142/74 H 12/13/24 12:29 Pulse Ox 93 12/13/24 12:29 Oxygen Delivery Method Room Air 12/13/24 12:29 BMI result Body Mass Index 15.0 Tobacco/Smoking Status: Tobacco use Status Tobacco use date assessed 12/13/24 12/13/24 12:34 Patient Tobacco Use Status Former Tobacco user 12/13/24 12:34 Tobacco use type Cigarette 12/13/24 12:34 e-Cigarette/Vaping Use Never Used 12/13/24 12:34 PHQ-9: PHQ-9 Score PHQ-9: Total score 0 12/13/24 12:56 Depression Screening Interpretation: Negative Thrive Assessment: Date of Thrive Assessment Date Thrive assessed 12/13/24 12/13/24 12:34 Currently or been in a relationship where the following occur: I choose not to answer Immunizations Boostrix Tdap 2.5 Lf unit-8 mcg-5 Lf/0.5 mL intramuscular syringe Performing Provider: Wilton Alfaro MD Performing Location: [facility] Administered by: Robbie Aguilar CMA on 12/13/24 12:52 Dose Route Admin Location Dispensed Lot Number Expiration Date [employer] 0.5 mL IM Right Deltoid 0.5 mL [id number] 01/06/27 20895-544-50 [employer] Total Dispensed Waste 0.5 mL 0 % VIS Given Date VIS Provided VIS Publication Date 12/13/24 Single Vaccine 20 Eligibility Eligibility Date Funding Source Not [facility] Eligible 12/13/24 Private Coding Level of Care Code Est Pt Level 3 (59105) Est Pt Prev Care >65y(44210) Diagnoses Encounter for general adult medical examination with abnormal findings Z00.01 Difficulty sleeping G47.9 Oxygen dependent Z99.81 COPD, severe J44.9 LFT elevation R79.89 Diabetes type 2, controlled E11.9 Age-related osteoporosis without current pathological fracture M81.0 Osteoporosis type: age-related Presence of current pathological fracture: without current pathological fracture Lipid disorder E78.9 White coat syndrome with hypertension I10 Additional Codes MAHAD-7 Assessment Billing - MAHAD-7 Assessment Tool: MAHAD-7 Assessment 50558 ([id number]) PHQ-9 - 02732 - PHQ-9 Billing: Yes ([id number]) Assessment & Plan Assessment & Plan (1) Encounter for general adult medical examination with abnormal findings: Code(s): Z00.01 - Encounter for general adult medical examination with abnormal findings Category: Medical (2) Difficulty sleeping: Code(s): G47.9 - Sleep disorder, unspecified Category: Medical (3) Oxygen dependent: Code(s): Z99.81 - Dependence on supplemental oxygen Category: Medical (4) COPD, severe: Comment: RELATIVELY SEVERE CHRONIC OBSTRUCTIVE PULMONARY DISEASE BUT IT IS STAYING QUITE STABLE AT THIS TIME. Code(s): J44.9 - Chronic obstructive pulmonary disease, unspecified Category: Medical (5) LFT elevation: Code(s): R79.89 - Other specified abnormal findings of blood chemistry Category: Medical (6) Diabetes type 2, controlled: Code(s): E11.9 - Type 2 diabetes mellitus without complications Category: Medical (7) Osteoporosis: Code(s): M81.0 - Age-related osteoporosis without current pathological fracture Category: Medical Qualifiers: Osteoporosis type: age-related Presence of current pathological fracture: without current pathological fracture Qualified Code(s): M81.0 - Age- related osteoporosis without current pathological fracture (8) Lipid disorder: Code(s): E78.9 - Disorder of lipoprotein metabolism, unspecified Category: Medical (9) White coat syndrome with hypertension: Code(s): I10 - Essential (primary) hypertension Category: Medical Plan History of Present Illness The patient is a 74-year-old female presenting for a PE Essential Hypertension: - Reports blood pressure measured at home is typically 114 systolic - In-clinic blood pressure recorded as 142/74. Elevated Liver Enzymes: - History of persistent slightly elevated liver enzymes. - Enzymes stable according to last blood test done in August. Vitamin D Insufficiency: - Taking vitamin D regularly. Anxiety and Depression: - Currently managed with Lexapro and Mirtazapine. - Denies current anxiety or depression symptoms. Hyperlipidemia: - Managed with Simvastatin. - due for labs Oxygen dependent sever COPD, managed by operating systems specialist Medical History: - Essential Hypertension - Anxiety - Depression - Hyperlipidemia - COPD Oxygen dep Social History: - Brought to the appointment by her son. - Denies issues with self-care; reports capability of managing daily activities. Health Maintenance - Recent mammogram normal. - Due for flu and COVID vaccines. - Requires tetanus vaccine, had last one in 2008. - Due for blood tests at next visit in four months. Medications - Lexapro for anxiety - Flonase nasal spray for allergies - Mirtazapine for depression - Simvastatin for hyperlipidemia - Vitamin D for insufficiency Patient Instructions - Continue all current medications as prescribed. - Obtain flu and COVID vaccines at [facility]. - Receive tetanus vaccine today - No need for fasting before next blood test prior to next visit. - Return for next visit in four months for follow-up. Orders: Orders TDaP Immunization Today Z23 - Encounter for immunization Complete Blood Count Auto Diff 3 Months E11.69 - Type 2 diabetes mellitus with other specified complication, E78.9 - Disorder of lipoprotein metabolism, unspecified, G47.9 - Sleep disorder, unspecified, I10 - Essential (primary) hypertension, J44.9 - Chronic obstructive pulmonary disease, unspecified, M81.0 - Age-related osteoporosis without current pathological fracture, R79.89 - Other specified abnormal findings of blood chemistry, Z00.01 - Encounter for general adult medical examination with abnormal findings, Z99.81 - Dependence on supplemental oxygen Comprehensive Met. Panel 3 Months E11.69 - Type 2 diabetes mellitus with other specified complication, E78.9 - Disorder of lipoprotein metabolism, unspecified, G47.9 - Sleep disorder, unspecified, I10 - Essential (primary) hypertension, J44.9 - Chronic obstructive pulmonary disease, unspecified, M81.0 - Age-related osteoporosis without current pathological fracture, R79.89 - Other specified abnormal findings of blood chemistry, Z00.01 - Encounter for general adult medical examination with abnormal findings, Z99.81 - Dependence on supplemental oxygen LDL Cholesterol Direct 3 Months . - Type 2 diabetes mellitus with other specified complication, E78.9 - Disorder of lipoprotein metabolism, unspecified, G47.9 - Sleep disorder, unspecified, I10 - Essential (primary) hypertension, J44.9 - Chronic obstructive pulmonary disease, unspecified, M81.0 - Age-related osteoporosis without current pathological fracture, R79.89 - Other specified abnormal findings of blood chemistry, Z00.01 - Encounter for general adult medical examination with abnormal findings, Z99.81 - Dependence on supplemental oxygen Hemoglobin A1c 3 Months . - Type 2 diabetes mellitus with other specified complication, E78.9 - Disorder of lipoprotein metabolism, unspecified, G47.9 - Sleep disorder, unspecified, I10 - Essential (primary) hypertension, J44.9 - Chronic obstructive pulmonary disease, unspecified, M81.0 - Age-related osteoporosis without current pathological fracture, R79.89 - Other specified abnormal findings of blood chemistry, Z00.01 - Encounter for general adult medical examination with abnormal findings, Z99.81 - Dependence on supplemental oxygen Medications: Refilled mirtazapine 22.5 mg (1.5 x 15 mg) PO BEDTIME 135 tabs 0RF 90 days escitalopram oxalate (Lexapro) 10 mg PO DAILY 90 tabs 0RF 90 days F41.1 - Generalized anxiety disorder amlodipine 2.5 mg PO DAILY 90 tabs 0RF 90 days simvastatin 20 mg PO DAILY 90 tabs 1RF 90 days E78.9 - Disorder of lipoprotein metabolism, unspecified
[2024-12-13 12:29] VITALS: BP 142/74; PULSE 104; O2SAT 93; BMI 15.0
--- OUTSIDE RECORDS SUMMARY | 2024-12-13 13:37 | XMS_ITS | Clinical Summary ---
Author Organization [employer] [facility] Address [address] [place] [address] [address] [place] [address] Care Team Providers Care System Development Manager Name Role Phone Unavailable Primary Care [...]
--- OUTSIDE RECORDS SUMMARY | 2024-12-13 13:37 | XMS_ITS | Encounter Summary ---
Author Organization [employer] [facility] Address [address] [place] [address] Care Team Providers Care Rubber And Pounder Name Role Phone Unavailable Primary Care Provider Unavailabl e Encounter Details Date Type Department Care Team (Latest Contact Info) Description 06/17/2021 Abstract [facility] CONVERSIONS Dental, Provider, DDS Social History [...]
== END 2024-12-13 15:44 | disposition home or self-care (01) ==
LOC: HO.HMCC 12:27
PROVIDERS: PCP Internal Medicine; Visit Provider Internal Medicine
DX: Z00.01 Encounter for general adult medical examination with abnormal findings (principal); J44.9 Chronic obstructive pulmonary disease, unspecified; E11.9 Type 2 diabetes mellitus without complications; G47.9 Sleep disorder, unspecified; Z99.81 Dependence on supplemental oxygen; R79.89 Other specified abnormal findings of blood chemistry; M81.0 Age-related osteoporosis without current pathological fracture; E78.9 Disorder of lipoprotein metabolism, unspecified; I10 Essential (primary) hypertension; Z23 Encounter for immunization

== ENCOUNTER → 2024-12-13 12:26 | Outpatient (BNVA) | payer MEDICARE, MEDICAID, SELFPAY | PROVIDERS: PCP Internal Medicine; Visit Provider Internal Medicine | DX: Z00.01 Encounter for general adult medical examination with abnormal findings (principal); I10 Essential (primary) hypertension; E55.9 Vitamin D deficiency, unspecified; F32.A Depression, unspecified; E78.5 Hyperlipidemia, unspecified; G47.9 Sleep disorder, unspecified; J44.9 Chronic obstructive pulmonary disease, unspecified; R79.89 Other specified abnormal findings of blood chemistry; E11.9 Type 2 diabetes mellitus without complications; M81.0 Age-related osteoporosis without current pathological fracture; F41.1 Generalized anxiety disorder; Z23 Encounter for immunization; Z99.81 Dependence on supplemental oxygen | CPT/HCPCS: 90471; 90715; 96127; 99397 ==